=== PATIENT | female | born 1935 | race Caucasian/White ===

== ENCOUNTER 2019-12-30 14:13 | Emergency (ER) | payer MEDICARE, SELFPAY ==
--- NOTE | ~2019-12-30 | CT_ITS ---
EXAMINATION: CT abdomen pelvis w con EXAM DATE: 12/30/2019 15:30 INDICATION: Left lower quadrant pain for 3 days. TECHNIQUE: Spiral CT of the abdomen and pelvis was performed following intravenous injection of 100 m L Omnipaque 350. Axial, coronal and sagittal images were reviewed. The dose-length product (DLP) fo r this examination was 424.17 mGy-cm. The exposure was tailored according to patient size (auto mA e xposure control), and iterative reconstruction (ASIR) was used as additional dose reduction technique . Comparison is made to prior examination from 10/19/2015. FINDINGS: The liver, spleen, adrenal glands and pancreas are unremarkable. There is chronic dense ma terial in the gallbladder probably large gallstone casting the inside of the gallbladder. Portal and splenic veins are patent. Kidneys enhance symmetrically. There is no hydronephrosis. The uterus is not identified and has likely been surgically resected. The bladder is unremarkable. There is no retroperitoneal or pelvic lymphadenopathy. There is moderate scattered arteriosclerotic disease. Probable cecal resection. There is moderate descending and sigmoid colonic diverticulosis. There is m ild inflammation at the descending/sigmoid colonic junction probably mild acute uncomplicated diverti culitis. There is colonic fluid, diarrhea. The stomach and small bowel are unremarkable. No free in traperitoneal gas. The heart is normal in size. There are no pericardial or pleural effusions. Th e lung bases are unremarkable. There are no osteoblastic or osteolytic lesions identified. There is advanced thoracolumbar spondylosis. There is mild to moderate chronic appearing compression fracture of T12. IMPRESSION: 1. Findings consistent with acute uncomplicated descending colonic colitis. Diarrhea. 2. Chronic, surgical changes above. Reviewed, dictated and finalized at location A. IMPRESSION: 1. Findings consistent with acute uncomplicated descending colonic colitis. Di arrhea. 2. Chronic, surgical changes above.
[2019-12-30 14:18] VITALS: BP 186/86; PULSE 83; RESP 16; TEMP 37.2; O2SAT 100
--- NOTE | 2019-12-30 14:35 | ED.ABDPAIN ---
HPI - Abdominal Pain General Chief Complaint: Abdominal Pain Stated Complaint: LLQ ABD PAIN X3D Time Seen by Provider: 12/30/19 14:23 Source: patient Mode of arrival: ambulatory Limitations: no limitations History of Present Illness HPI narrative: Pt is an 84 y/o female who presents to the ED with c/o intermittent LLQ ABD pain. She reports associated nausea, but denies vomiting, diarrhea, or a fever. Pt did not take any pain medicine. She went to the and was sent to the ED for further evaluation. MD elicited complaint: abdominal pain Pain Consistency: intermittent Location: LLQ Associated symptoms: nausea Related Data Home Medications Medication Instructions Recorded Confirmed levothyroxine 75 mcg tablet 75 mcg PO DAILY 12/09/19 12/09/19 lisinopril 40 mg tablet 40 mg PO DAILY 12/09/19 12/09/19 Allergies Allergy/AdvReac Type Severity Reaction Status Date / Time celecoxib Allergy Unknown abdominal Verified 12/09/19 09:09 pain ciprofloxacin Allergy Unknown Unknown Verified 12/09/19 09:09 valacyclovir AdvReac Severe Headache Verified 12/30/19 14:52 Review of Systems Review of Systems: All systems reviewed & are unremarkable except as noted in HPI and below Constitutional: Constitutional: Denies fever(s) Gastrointestinal: Gastrointestinal: Reports abdominal pain, Denies diarrhea, Reports nausea and Denies vomiting PMFSH Past Medical History Medical History Arthritis Decreased hearing Depression HLD (hyperlipidemia) HTN (hypertension) Hypothyroidism Osteoporosis Seasonal allergies UTI (urinary tract infection) Surgical History Surgical History H/O repair of left rotator cuff H/O: hysterectomy History of back surgery History of colon resection Hx of appendectomy Family History Family History (System 09/02/19 @ 08:22 by Mindy Corona) Mother Hypertension Father Family history of chronic obstructive pulmonary disease Patient's father is Sibling Family history of diabetes mellitus in first degree relative Social History Social History Smoking status: Never smoker Second hand tobacco smoke exposure: No Alcohol intake: never Substance use: never Substance use type: does not use Gender identity (if verbalized by the patient): Female Exam Narrative: Exam Narrative: APPEARANCE: No acute distress, nontoxic, resting in bed HEENT: Normocephalic, atraumatic, OMM RESPIRATORY: No respiratory distress, clear to auscultation bilaterally with no rhonchi wheezing or rales CARDIOVASCULAR: RRR s murmur ABDOMINAL: Soft, nondistended, tender palpation left lower quadrant, no tenderness left upper quadrant, right quadrant right lower quadrant, no rebound or guarding MUSCULOSKELETAl: Moves all extremities. No clubbing, cyanosis or edema. NEURO: Awake and alert. Following commands, speech normal, no focal deficits SKIN:: Warm, dry. Normal Color PSYCHIATRIC: Normal affect/mood Course Course Emergency Course: Discussed with Dr. Wilson presentation work-up. Agrees with plan to start patient Augmentin with follow-up as an outpatient Patient states that they are feeling much better at this time. States abdominal pain has improved. Repeat abdominal exam shows the patient's abdomen to be soft with no surgical abdomen present discussed with patient results of workup and diagnosis. Discussed need for follow-up with primary care physician, reasons to return to the emergency department in proper use of medication. Patient understands and agrees to current treatment plan Vital Signs Vital signs: Vital Signs Temperature 98.9 F 12/30/19 14:18 Pulse Rate 83 12/30/19 14:18 Respiratory Rate 16 12/30/19 14:18 Blood Pressure 186/86 H 12/30/19 14:18 Pulse Oximetry 100 12/30/19 14:18 Temperature 98.9 F 12/30/19 14:18
--- NOTE | 2019-12-30 15:04 | PC.NURSE ---
Called phlebotomy to draw lactic acid.
[2019-12-30 15:10] LABS: Basophils Absolute Auto 0.1 K/mm3 (0.0-0.1); Basophils Percent Auto 0.7 % (0.2-1.2); Eosinophils Absolute Auto 0.1 K/mm3 (0-0.3); Eosinophils Percent Auto 1.4 % (0-4.4); Hematocrit 43.5 % (37.0-47.0); Hemoglobin 14.3 g/dL (12.0-15.0); Immature Granulocyte Absolute 0.03 K/mm3 (0.00-0.031); Immature Granulocyte Percent A 0.3 % (0-0.5); Lymphocytes Absolute Auto 2.21 K/mm3 (0.9-3.2); Lymphocytes Percent Auto 22.6 % (18.3-44.2); Mean Corpuscular HGB Conc 32.9 g/dl (32-36); Mean Corpuscular Hemoglobin 30.7 pg (26-34); Mean Corpuscular Volume 93.3 fl (80-100); Mean Platelet Volume 11.4 fl (7.4-10.4); Monocytes Percent Auto 10.6 % (2.6-8.5); Neutrophils Absolute Auto 6.3 K/mm3 (1.3-6.7); Neutrophils Percent Auto 64.4 % (45.5-73.1); Platelet Count Result 209 k/mm3 (150-375); Red Blood Count 4.66 M/mm3 (4.2-5.4); Red Cell Distribution Width 11.1 % (11.5-14.5); White Blood Count 9.8 K/mm3 (4.5-10.0)
[2019-12-30 15:23] LABS: Lipase 71 U/L (23-300)
[2019-12-30 15:25] LABS: Estimated CRCL calculation 42 ml/min; Estimated Glomerular Filt Rate > 60
[2019-12-30] MEDS: LACTATED RINGERS 1,000 ML 999 ML IV CONT (16:00)
[2019-12-30 16:13] LABS: Prothrombin Time 13.3 Seconds (11.1-14.7)
[2019-12-30 16:14] LABS: Lactic Acid Reflex 1.5 mmol/L (0.7-2.1); Partial Thromboplastin Time 28.8 SECONDS (22.3-36.8)
[2019-12-30 16:15] LABS: Alanine Aminotransferase 21 U/L (4-35); Albumin Level 3.7 g/dL (3.5-5.1); Alkaline Phosphatase 62 U/L (38-126); Aspartate Amino Transferase 32 U/L (14-36); Bilirubin,Total 0.6 mg/dL (0.2-1.3); Blood Urea Nitrogen 10 mg/dL (7-17); Carbon Dioxide 28 mmol/L (22-30); Chloride 103 mmol/L (98-107); Estimated CRCL calculation 42 ml/min; Estimated Glomerular Filt Rate > 60; Glucose 80 mg/dL (65-105); Sodium 137 mmol/L (137-145)
[2019-12-30 16:24] LABS: Add Urine Microscopic? YES; Amorphous Sediment Urine Few; Appearance Urine Cloudy (Clear); Bacteria Urine Trace /hpf; Bilirubin Urine Negative (Negative); Blood Urine 1+ (Negative); Color Urine Straw (Yellow); Glucose Urine UA Negative (Negative); Ketones Urine Negative (Negative); Leukocyte Esterase Ur 3+ LEU/UL (Negative); Nitrate Urine Negative (Negative); Protein Urine Negative (Negative); Specific Grav Ur 1.006 (1.001-1.035); Squamous Epithelial Cell Urine Moderate /hpf (Few); Urobilinogen Urine Negative mg/dL (<2.0)
[2019-12-30 18:00] VITALS: BP 135/78; PULSE 79; RESP 20; O2SAT 98
[2019-12-30] MEDS: AMOXICILLIN/CLAVULANATE K 875-125 MG TAB 1 TABLET PO (18:00)
== END 2019-12-30 18:00 | disposition home or self-care (01) ==
PROVIDERS: Emergency Provider Emergency Medicine; PCP Family Medicine
DX: K57.32 Diverticulitis of large intestine without perforation or abscess without bleeding (principal); M19.90 Unspecified osteoarthritis, unspecified site; E03.9 Hypothyroidism, unspecified; I10 Essential (primary) hypertension; E78.5 Hyperlipidemia, unspecified; M81.0 Age-related osteoporosis without current pathological fracture; Z90.49 Acquired absence of other specified parts of digestive tract; Z87.440 Personal history of urinary (tract) infections
CPT/HCPCS: 36415; 74177; 80053; 81001; 83605; 83690; 85025; 85610; 85730; 87077; 87086; 87088; 87186; 96361; 96374; 99284; A9270; J0131; J7120; Q9967

== ENCOUNTER 2020-02-11 07:37 | Outpatient (CLI) | payer MEDICARE, SELFPAY ==
--- NOTE | ~2020-02-11 | CT_ITS ---
EXAMINATION: CT abdomen pelvis w con DATE: 02/11/2020 08:37 INDICATION: Intestinal diverticulitis. TECHNIQUE: Computed tomography (CT) of the abdomen and pelvis was performed . with 100 mL Omnipaque-3 50 intravenous contrast. Automated exposure control and iterative reconstruction technique were emplo yed. The dose-length product was 403.22 mGy-cm. COMPARISON: 12/30/2019 FINDINGS: Chronic mild elevation of the left hemidiaphragm with mild left basilar atelectasis. Heart size is no rmal. No pericardial or pleural effusion. Several large calcified gallstones nearly filling the parti ally decompressed gallbladder. Common bile duct measures up to 7 mm diameter which is at the upper li mits of normal for age. No evident choledocholithiasis. Liver is normal with no intrahepatic biliary ductal dilation. Spleen, pancreas, bilateral adrenal glands and kidneys are normal. Bladder is normal . The uterus is not identified and has likely been surgically resected. There is moderate colonic div erticulosis with a sigmoid and descending colon predominance. There is no adjacent inflammatory soto ge to suggest diverticulitis. Postoperative change of cecal resection with ileocolic anastomosis in t he right lower quadrant. No bowel obstruction. No free intraperitoneal gas or fluid. No pathologicall y enlarged abdominal or pelvic lymphadenopathy. There is calcified atherosclerosis of the aorta and m any of the other arteries. Chronic T12 compression fracture with 1/4 anterior vertebral body height l oss. Severe degenerative skeletal changes in the spine and right hip. IMPRESSION: 1. Diverticulosis. 2. Cholelithiasis. Reviewed, dictated and finalized at location A.
[2020-02-11 08:19] LABS: Estimated Glomerular Filt Rate > 60
== END 2020-02-11 07:38 | disposition home or self-care (01) ==
PROVIDERS: PCP Family Medicine; Visit Provider Family Medicine
DX: K57.92 Diverticulitis of intestine, part unspecified, without perforation or abscess without bleeding (principal); K80.20 Calculus of gallbladder without cholecystitis without obstruction
CPT/HCPCS: 36415; 74177; Q9967

== ENCOUNTER 2020-07-19 07:02 | Outpatient (CLI) | payer MEDICARE, SELFPAY ==
[2020-07-19 08:14] LABS: Basophils Absolute Auto 0.1 K/mm3 (0.0-0.1); Basophils Percent Auto 1.4 % (0.2-1.2); Eosinophils Absolute Auto 0.2 K/mm3 (0-0.3); Hematocrit 45.4 % (37.0-47.0); Hemoglobin 14.8 g/dL (12.0-15.0); Immature Granulocyte Absolute 0.01 K/mm3 (0.00-0.031); Immature Granulocyte Percent A 0.2 % (0-0.5); Lymphocytes Absolute Auto 2.08 K/mm3 (0.9-3.2); Lymphocytes Percent Auto 31.3 % (18.3-44.2); Mean Corpuscular HGB Conc 32.6 g/dl (32-36); Mean Corpuscular Hemoglobin 30.4 pg (26-34); Mean Corpuscular Volume 93.2 fl (80-100); Monocytes Absolute Auto 0.7 K/mm3 (0.1-0.6); Monocytes Percent Auto 10.8 % (2.6-8.5); Neutrophils Absolute Auto 3.5 K/mm3 (1.3-6.7); Neutrophils Percent Auto 53.3 % (45.5-73.1); Platelet Count Result 219 k/mm3 (150-375); Red Blood Count 4.87 M/mm3 (4.2-5.4); Red Cell Distribution Width 11.1 % (11.5-14.5); White Blood Count 6.6 K/mm3 (4.5-10.0)
[2020-07-19 08:24] LABS: Add Urine Microscopic? YES; Appearance Urine Cloudy (Clear); Bacteria Urine Trace /hpf; Bilirubin Urine Negative (Negative); Blood Urine 2+ (Negative); Color Urine Straw (Yellow); Glucose Urine UA Negative (Negative); Ketones Urine Negative (Negative); Leukocyte Esterase Ur 2+ LEU/UL (NEGATIVE); Nitrate Urine Negative (Negative); Protein Urine Negative (Negative); Specific Grav Ur 1.008 (1.001-1.035); Squamous Epithelial Cell Urine Many /hpf (Few); Transitional Epi Cells Urine Rare /hpf (None Seen); Urobilinogen Urine Negative mg/dL (<2.0); WBC Urine 31-50 /hpf (0-3)
[2020-07-19 08:30] LABS: Alanine Aminotransferase 22 U/L (4-35); Albumin Level 4.1 g/dL (3.5-5.1); Alkaline Phosphatase 68 U/L (38-126); Anion Gap 8 mmol/L (8-16); Aspartate Amino Transferase 36 U/L (14-36); Bilirubin,Total 0.7 mg/dL (0.2-1.3); Blood Urea Nitrogen 13 mg/dL (7-17); Carbon Dioxide 31 mmol/L (22-30); Chloride 101 mmol/L (98-107); Cholesterol 246 mg/dL (0-200); Estimated Glomerular Filt Rate 60; Glucose 104 mg/dL (65-105); HDL Direct 54 mg/dL; Potassium 3.9 mmol/L (3.4-5.0); Sodium 140 mmol/L (137-145); Triglycerides 221 mg/dL (<150)
[2020-07-19 08:40] LABS: LDL Cholesterol Direct 137 mg/dL
== END 2020-07-19 07:03 | disposition home or self-care (01) ==
LOC: ANHLAB 07:05 → ANHVASCINF 07:09
PROVIDERS: PCP Family Medicine; Visit Provider Physician Assistant
DX: N39.0 Urinary tract infection, site not specified (principal); E78.5 Hyperlipidemia, unspecified; I10 Essential (primary) hypertension; E03.9 Hypothyroidism, unspecified; M81.0 Age-related osteoporosis without current pathological fracture
CPT/HCPCS: 36415; 80053; 80061; 81001; 84443; 85025; 87077; 87086; 87088; 87186; 99212; G0463

== ENCOUNTER 2020-10-16 17:24 | Inpatient (IN) | payer MEDICARE, SELFPAY ==
[2020-10-16] VITALS (7 sets, daily range): BP systolic 140–150; BP diastolic 68–92; PULSE 97–111; RESP 18–20; TEMP 36.6–37.2; O2SAT 95–99; BMI 25.0
--- NOTE | ~2020-10-16 | CT_ITS ---
EXAMINATION: CT lumbar spine wo con DATE: 10/16/2020 17:54 INDICATION: Low back pain TECHNIQUE: Computed tomography (CT) of the lumbar spine was performed without intravenous contrast. T he dose-length product was 499.61 mGy-cm. Automated exposure control and iterative reconstruction luis hnique were employed. COMPARISON: Lumbar spine series dated 12/30/2009 FINDINGS: There is mild wedge compression deformity of T12 which is new since prior x-rays, although is likely chronic. There is disc narrowing and endplate degenerative change at all lumbar levels. The re are prominent dorsal osteophytes at T11-12. There is atherosclerosis of the aorta. There is advanc ed facet hypertrophy with endplate degenerative change at L4-5 and L5-S1. There are laminectomy rossi es at L4 and L5. No acute fracture or traumatic malalignment. IMPRESSION: 1. No acute abnormality of the lumbar spine. 2: Mild wedge compression deformity of T12, likely chronic. 3: Severe lumbar spondylosis. Reviewed, dictated and finalized at location A. R [employer] P[employer]ER
--- NOTE | ~2020-10-16 | CT_ITS ---
EXAMINATION: CT abdomen pelvis w con DATE: 10/16/2020 20:17 INDICATION: Pyelonephritis TECHNIQUE: Computed tomography (CT) of the abdomen and pelvis was performed with 100 cc Omnipaque 350 intravenous contrast. The dose-length product was 702.64 mGy-cm. Automated exposure control and iter ative reconstruction technique were employed. COMPARISON: CT dated 02/11/2020. FINDINGS: Dependent atelectasis. Heart size normal. Moderate atherosclerosis. Status post appendectom y. Nonobstructive bowel gas pattern. Status post hysterectomy. Colonic diverticulosis without evidenc e for diverticulitis. There is a nodular appearance to the liver surface, suspicious for cirrhosis. There are gallstones. T he spleen, pancreas, adrenal glands are unremarkable. There is a poorly circumscribed area of hypoper fusion in the lower pole of the left kidney with mild surrounding inflammation, consistent with pyelo nephritis. There are small subcentimeter hypodensities of both kidneys, most likely benign. No significant hydronephrosis. 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 Severe lower thoracic an d lumbar spondylosis. IMPRESSION: 1. Poorly circumscribed area of hypoperfusion lower pole of the left kidney, consistent with pyelonep hritis. 2: Cholelithiasis. 3: Nodular liver surface, suspicious for cirrhosis. Reviewed, dictated and finalized at location A. [employer]IST IMPRESSION: 1. Poorly circumscribed area of hypoperfusion lower pole of the left kidney, co nsistent with pyelonephritis. 2: Cholelithiasis. 3: Nodular liver surface, suspicious for cirrhosis.
--- NOTE | 2020-10-16 17:36 | ED.GENADULT ---
HPI - General Adult General Chief complaint: Weakness Stated complaint: weakness Time Seen by Provider: 10/16/20 17:33 History of Present Illness HPI narrative: 85 yo female w/ h/o htn, hypothyroidism presents to the ED for weakness. She reports that she has had several days of progressive weakness. Today she attempted to standup from a chair and slid to the ground. She does not believe that she injured herself in the fall. She thinks the weakness may be due to worsening of her chronic back pain. She has had multiple minor falls recently. She does report urinary frequency as well. No dysuria, hematuria, fever, head injury, focal weakness. Related Data Home Medications Medication Instructions Recorded Confirmed naproxen sodium 1 tablet PO PRN 10/16/20 10/16/20 Allergies Allergy/AdvReac Type Severity Reaction Status Date / Time celecoxib Allergy Unknown abdominal Verified 10/16/20 22:17 pain ciprofloxacin Allergy Unknown Unknown Verified 10/16/20 22:17 valacyclovir AdvReac Severe Headache Verified 10/16/20 22:17 Review of Systems Review of Systems: All systems reviewed & are unremarkable except as noted in HPI and below Constitutional: Constitutional: Denies chills and Denies fever(s) Cardiovascular: Cardiovascular: Denies chest pain Respiratory: Respiratory: Denies dyspnea Gastrointestinal: Gastrointestinal: Denies abdominal pain, Denies nausea and Denies vomiting Genitourinary: Genitourinary: Denies hematuria, Reports nocturia and Denies dysuria Musculoskeletal: Musculoskeletal: Reports back pain Neurologic: Denies confusion, Denies dizziness, Denies syncope, Denies focal weakness and Reports weakness PMFSH Past Medical History Medical History Arthritis Decreased hearing Depression HLD (hyperlipidemia) HTN (hypertension) Hypothyroidism Osteoporosis Seasonal allergies UTI (urinary tract infection) UTI (urinary tract infection) Vitiligo Surgical History Surgical History H/O repair of left rotator cuff H/O: hysterectomy History of back surgery History of colon resection Hx of appendectomy Family History Family History Mother Hypertension Breast cancer Father Patient's father is Family history of chronic obstructive pulmonary disease Emphysema Sibling Family history of diabetes mellitus in first degree relative Social History Social History Social History: Independent, active, daughters nearby that helps with groceries and bills Smoking status: Never smoker Second hand tobacco smoke exposure: No Alcohol intake: never Substance use: never Substance use type: does not use Additional living arrangements comments: Lives with Gender identity (if verbalized by the patient): Female Spiritual care concerns: No Exam Const: General: healthy appearing, no acute distress and alert Orientation/consciousness: patient oriented x3 HENMT: Head: normal to inspection Neck: Neck: normal visual inspection and no lymphadenopathy Chest: Chest palpation & inspection: no tenderness Resp: Effort & Inspection: normal respiratory effort Auscultation: clear to auscultation bilaterally, no rales, no rhonchi and no wheezes Cardio: Jugular venous distension: no JVD Rate: regular rate Rhythm: regular rhythm Heart sounds: no murmurs GI: Inspection: non-distended GI Palp: Yes Soft to palpation and No Tenderness to palpation present (GI) Back/Spine/Pelvis: Back: no CVA tenderness Skin: General skin exam: normal color Neuro: General: patient oriented x3 and moves all extremities Speech: normal speech Extrem: General: no edema Psych: Appearance: well kempt Affect: normal affect Course Vital Signs Vital
[2020-10-16 17:46] LABS: Hematocrit 40.8 % (37.0-47.0); Hemoglobin 13.8 g/dL (12.0-15.0); Mean Corpuscular HGB Conc 33.8 g/dl (32-36); Mean Corpuscular Hemoglobin 31.3 pg (26-34); Mean Corpuscular Volume 92.5 fl (80-100); Platelet Count Result 324 k/mm3 (150-375); Red Blood Count 4.41 M/mm3 (4.2-5.4); Red Cell Distribution Width 11.1 % (11.5-14.5)
[2020-10-16 17:47] LABS: Basophils Absolute Auto 0.1 K/mm3 (0.0-0.1); Basophils Percent Auto 0.4 % (0.2-1.2); Immature Granulocyte Absolute 0.33 K/mm3 (0.00-0.031); Immature Granulocyte Percent A 1.5 % (0-0.5); Lymphocytes Absolute Auto 1.12 K/mm3 (0.9-3.2); Lymphocytes Percent Auto 5.1 % (18.3-44.2); Mean Platelet Volume 10.5 fl (7.4-10.4); Monocytes Absolute Auto 2.3 K/mm3 (0.1-0.6); Monocytes Percent Auto 10.2 % (2.6-8.5); Neutrophils Absolute Auto 18.2 K/mm3 (1.3-6.7); Neutrophils Percent Auto 82.8 % (45.5-73.1)
--- NOTE | 2020-10-16 17:54 | PC.NURSE ---
Patient refusing to be straight cath at this time, states will notified nurse when have to void.
[2020-10-16] MEDS: SODIUM CHLORIDE 0.9% IV 500 ML 999 ML IV CONT (18:06)
[2020-10-16 18:30] LABS: Alanine Aminotransferase 15 U/L (4-35); Albumin Level 3.4 g/dL (3.5-5.1); Alkaline Phosphatase 83 U/L (38-126); Anion Gap 5 mmol/L (8-16); Aspartate Amino Transferase 25 U/L (14-36); Blood Urea Nitrogen 9 mg/dL (7-17); Calcium 8.6 mg/dL (8.4-10.2); Carbon Dioxide 31 mmol/L (22-30); Chloride 97 mmol/L (98-107); Estimated CRCL calculation 42 ml/min; Estimated Glomerular Filt Rate > 60; Glucose 142 mg/dL (65-105); Potassium 3.9 mmol/L (3.4-5.0); Sodium 133 mmol/L (137-145)
[2020-10-16 19:00] LABS: Add Urine Microscopic? YES; Appearance Urine Cloudy (Clear); Bacteria Urine Trace /hpf; Bilirubin Urine Negative (Negative); Blood Urine Negative (Negative); Color Urine Yellow (Yellow); Glucose Urine UA Negative (Negative); Ketones Urine Trace mg/dL (Negative); Leukocyte Esterase Ur 1+ LEU/UL (Negative); Mucus Urine Rare /lpf; Nitrate Urine Positive (Negative); Protein Urine 1+ mg/dL (Negative); Specific Grav Ur 1.011 (1.001-1.035); Squamous Epithelial Cell Urine Many /hpf (Few); Urobilinogen Urine Negative mg/dL (<2.0); WBC Urine >75 /hpf
--- NOTE | 2020-10-16 19:39 | PM.IMHP ---
H&P: HPI History of Present Illness Date/Time: 10/16/20 19:39 Chief Complaint: abdominal pain, generalized weakness, urinary urgency/frequency Narrative: Brenna Perry is a 85 year old female hypertension, hyperlipidemia, hypothyroidism, osteoporosis, history of UTI presents to ED with complaints of low back pain and generalized weakness. She states her symptoms started couple weeks ago which gradually progressed. She got to the point where she got very weak and was having a hard time getting up. Her was concerned and they called EMS. She endorses generalized weakness which has been progressive, denies syncope, lightheadedness, dizziness, or loss of consciousness. She does complain of urinary urgency without dysuria or hematuria. Patient has had UTIs in the past but does not know what antibiotics she has been on in the past. Last PCP wellness visit was 07/08/2020 and lab work looked good and she had no acute problems. In the ED: Patient is tachycardic and WBC count 22,000 triggering sepsis with UA consistent with UTI. Patient's CT of lumbar spine because of back pain which showed chronic compression T12 in severe lumbar spondylolysis and no acute abnormality. Patient was started on Rocephin for UTI. CT abdomen pelvis consistent with left-sided pyelonephritis which is consistent with her symptoms. Vitals stabilized with LR fluid bolus. Since patient triggered sepsis without end-organ damage and has pyelonephritis requiring IV antibiotics, patient will be admitted for IV antibiotics. Anticipate greater than 2 days for IV antibiotics. Date of service 10/16/2020. Review of Systems Review of Systems: Narrative: Constitutional: No Fever, No Chills, No Night Sweats, endorses fatigue and generalized weakness. ENT/Mouth: No Hearing Changes, No Ear Pain, No Nasal Congestion, No Sinus Pain, No Hoarseness, No sore throat, No Rhinorrhea, No Swallowing Difficulty Eyes: No Eye Pain, No Redness, No Vision Changes Cardiovascular: No Chest Pain, No Palpitations, No Dyspnea on Exertion, No Orthopnea, No Claudication, No Edema Respiratory: No Cough, No Sputum, No Wheezing, No Shortness of Breath Gastrointestinal: No Vomiting, No Diarrhea, No Constipation, No Heartburn, No Hematochezia, No Melena. Endorses nausea and left-sided abdominal pain. Genitourinary: No Dysuria, No Hematuria. Endorses urinary urgency and frequency. Musculoskeletal: No Arthralgias, No Myalgias, No Joint Swelling, No Joint Stiffness. Endorses left-sided low back pain. Skin: No Skin Lesions, No Pruritis, No Hair Changes Neuro: No focal weakness, No Numbness, No Paresthesias, No Loss of Consciousness, No Syncope, No Dizziness, No Headache Psych: No Anxiety/Panic, No Depression, No Insomnia Heme: No Bruising, No Bleeding Lymph: No Adenopathy Endocrine: No Polyuria, No Polydipsia, No Temperature Intolerance [facility] Past Medical History Medical History Arthritis Decreased hearing Depression HLD (hyperlipidemia) HTN (hypertension) Hypothyroidism Osteoporosis Seasonal allergies UTI (urinary tract infection) UTI (urinary tract infection) Vitiligo Surgical History Surgical History H/O repair of left rotator cuff H/O: hysterectomy History of back surgery History of colon resection Hx of appendectomy Family History Family History Mother Hypertension Breast cancer Father Patient's father is Family history of chronic obstructive pulmonary disease Emphysema Sibling Family history of diabetes mellitus in first degree relative Social History Social History (Updated 10/16/20 @ 21:05 by Evonne Angelo DO) Social History: Independent, active, daughters nearby that helps with groceries and bills Smoking status: Never smoker Second hand
[2020-10-16] MEDS: LACTATED RINGERS 1,000 ML 75 ML IV CONT (21:47)
[2020-10-17] MEDS: ONDANSETRON INJ 4 MG/2 ML VIAL IV PUSH (05:05)
[2020-10-17 06:00] VITALS: BP 139/68; PULSE 95; RESP 16; TEMP 37.2; O2SAT 94
[2020-10-17] MEDS: LEVOTHYROXINE SODIUM 75 MCG TABLET PO (06:54)
[2020-10-17 07:21] LABS: Basophils Absolute Auto 0.1 K/mm3 (0.0-0.1); Basophils Percent Auto 0.5 % (0.2-1.2); Eosinophils Percent Auto 0.1 % (0-4.4); Hematocrit 39.3 % (37.0-47.0); Hemoglobin 12.6 g/dL (12.0-15.0); Immature Granulocyte Absolute 0.16 K/mm3 (0.00-0.031); Immature Granulocyte Percent A 0.8 % (0-0.5); Immature Platelet Fraction Pct 4.4 % (0.9-11.2); Lymphocytes Absolute Auto 1.81 K/mm3 (0.9-3.2); Lymphocytes Percent Auto 9.3 % (18.3-44.2); Mean Corpuscular HGB Conc 32.1 g/dl (32-36); Mean Corpuscular Hemoglobin 30.5 pg (26-34); Mean Corpuscular Volume 95.2 fl (80-100); Mean Platelet Volume 10.5 fl (7.4-10.4); Monocytes Percent Auto 10.1 % (2.6-8.5); Neutrophils Absolute Auto 15.5 K/mm3 (1.3-6.7); Neutrophils Percent Auto 79.2 % (45.5-73.1); Platelet Count Result 261 k/mm3 (150-375); Red Blood Count 4.13 M/mm3 (4.2-5.4); Red Cell Distribution Width 11.1 % (11.5-14.5); White Blood Count 19.6 K/mm3 (4.5-10.0)
[2020-10-17 07:23] LABS: Anion Gap 4 mmol/L (8-16); Blood Urea Nitrogen 9 mg/dL (7-17); Calcium 8.3 mg/dL (8.4-10.2); Carbon Dioxide 29 mmol/L (22-30); Chloride 102 mmol/L (98-107); Estimated CRCL calculation 42 ml/min; Estimated Glomerular Filt Rate > 60; Glucose 121 mg/dL (65-105); Sodium 135 mmol/L (137-145)
[2020-10-17] MEDS: lisinopriL 20 MG TABLET 40 MG PO (08:35)
[2020-10-17] MEDS: ENOXAPARIN 40 MG/0.4 ML SYRINGE SUB-Q (08:35)
[2020-10-17] MEDS: LACTATED RINGERS 1,000 ML 75 ML IV CONT (12:01)
[2020-10-17 14:00] VITALS: BP 135/63; PULSE 90; RESP 16; TEMP 37.1; O2SAT 96
--- NOTE | 2020-10-17 14:15 | PM.IMPN ---
Progress Note: A&P Assessment and Plan (1) Acute pyelonephritis: Code(s): N10 - Acute pyelonephritis Status: Acute Assessment and Plan: Symptoms and imaging consistent with pyelonephritis -UA consistent with infection -continue ceftriaxone and await blood cultures -continue IV fluids but monitor for fluid overload -continue zofran for nausea -white blood cell count minimally improved today 19.6 -await urine cultures and adjust medications as necessary (2) Sepsis: Qualifiers: Sepsis type: sepsis due to unspecified organism Sepsis acute organ dysfunction status: without acute organ dysfunction Qualified Code(s): A41.9 - Sepsis, unspecified organism Code(s): A41.9 - Sepsis, unspecified organism Status: Acute Assessment and Plan: Sepsis criteria met with tachycardia and leukocytosis, source infection urinary. -continue ceftriaxone as stated above -await blood cultures (3) HTN (hypertension): Code(s): I10 - Essential (primary) hypertension Status: Acute Assessment and Plan: Last blood pressure 139/68 -continue lisinopril (4) Hypothyroidism: Code(s): E03.9 - Hypothyroidism, unspecified Status: Acute Assessment and Plan: Continue home levothyroxine (5) Generalized weakness: Code(s): R53.1 - Weakness Status: Acute Assessment and Plan: Likely due to above -PT and OT have been ordered Time Spent With Patient Time with patient: 25 - 35 minutes Subjective Date/time seen: 10/17/20 14:15 Interval history: Pt is a 85-year-old female here for pyelonephritis. Patient was seen today and states she is feeling better than when she was admitted overnight. She is still having left flank pain but is improving. She feels stronger than she did yesterday. She has been up and walking to the bathroom with assistance. She has been having some nausea and has not been eating very much. She denies chest pain, shortness of breath, abdominal pain, leg swelling, fevers but she has been having chills. Review of Systems Review of Systems: All systems reviewed & are unremarkable except as noted in HPI and below Exam Narrative: Exam Narrative: General: Well developed well nourished patient in NAD HEENT: normocephalic Neck: supple Neuro: Alert and oriented x4 CV:RRR Resp:CTA Abd: Soft, non distended. No pain to palpation. Positive bowel sounds Back: CVA tenderness Extremities: No swelling, erythema, or pain to palpation. Objective Data Vital Signs Vital Signs: Vital Signs - 24 hr 10/16/20 17:25 10/16/20 17:38 10/16/20 18:12 Temperature 97.8 F Pulse Rate 108 H 111 H 101 H Respiratory Rate 20 18 Blood Pressure 149/92 H 142/76 H Pulse Oximetry 97 98 10/16/20 19:32 10/16/20 19:45 10/16/20 21:32 Temperature 98.9 F Pulse Rate 97 99 Respiratory Rate 18 20 Blood Pressure 140/68 144/87 H Pulse Oximetry 95 99 10/16/20 21:45 10/17/20 06:00 Temperature 98.2 F 98.9 F Pulse Rate 101 H 95 Respiratory Rate 18 16 Blood Pressure 150/82 H 139/68 Pulse Oximetry 98 94 Intake/Output Intake/Output: Intake & Output 10/14/20 10/15/20 10/16/20 10/17/20 23:59 23:59 23:59 23:59 Intake Total 500 1370 Output Total 900 Balance 500 470 Meds/Results Medications: Active Medications Generic Name Dose Route Start Last Admin Trade Name Freq PRN Reason Stop Dose Admin Enoxaparin Sodium 40 mg 10/17/20 09:00 10/17/20 08:35 Enoxaparin 40 Mg/0.4 Ml Syringe SUB-Q 40 mg DAILY APOLONIA Administration Lactated Ringer's 1,000 mls @ 75 mls/hr 10/16/20 20:30 10/17/20 12:01 Lr - Lactated Ringers Iv IV CONT 75 mls/hr .[id number] APOLONIA Administration Ceftriaxone Sodium/Dextrose 1 gm in 50 mls @ 100 mls/hr 10/17/20 21:00 Rocephin 1 Gm/D5w 50 Ml IVPB HS APOLONIA Levothyroxine Sodium 75 mcg 10/17/20 06:30 10/17/20 06:54 Levothyroxine Sodium 75 Mcg Tablet PO
[2020-10-17 20:00] VITALS: PULSE 92; RESP 16; O2SAT 96
[2020-10-17] MEDS: MELATONIN 3 MG TABLET PO (21:04)
[2020-10-17 22:00] VITALS: BP 129/43; PULSE 92; RESP 16; TEMP 37; O2SAT 96
[2020-10-18] MEDS: LACTATED RINGERS 1,000 ML 75 ML IV CONT (02:33)
[2020-10-18 06:00] VITALS: BP 135/60; PULSE 84; RESP 16; TEMP 36.4; O2SAT 97
[2020-10-18] MEDS: LEVOTHYROXINE SODIUM 75 MCG TABLET PO (06:07)
[2020-10-18 06:31] LABS: Basophils Absolute Auto 0.1 K/mm3 (0.0-0.1); Basophils Percent Auto 0.3 % (0.2-1.2); Eosinophils Absolute Auto 0.1 K/mm3 (0-0.3); Eosinophils Percent Auto 0.8 % (0-4.4); Hematocrit 39.5 % (37.0-47.0); Hemoglobin 12.8 g/dL (12.0-15.0); Immature Granulocyte Absolute 0.11 K/mm3 (0.00-0.031); Immature Granulocyte Percent A 0.8 % (0-0.5); Lymphocytes Absolute Auto 1.76 K/mm3 (0.9-3.2); Lymphocytes Percent Auto 12.3 % (18.3-44.2); Mean Corpuscular HGB Conc 32.4 g/dl (32-36); Mean Corpuscular Hemoglobin 30.7 pg (26-34); Mean Corpuscular Volume 94.7 fl (80-100); Mean Platelet Volume 10.3 fl (7.4-10.4); Monocytes Absolute Auto 1.4 K/mm3 (0.1-0.6); Monocytes Percent Auto 9.5 % (2.6-8.5); Neutrophils Absolute Auto 10.9 K/mm3 (1.3-6.7); Neutrophils Percent Auto 76.3 % (45.5-73.1); Platelet Count Result 261 k/mm3 (150-375); Red Blood Count 4.17 M/mm3 (4.2-5.4); Red Cell Distribution Width 11.3 % (11.5-14.5); White Blood Count 14.3 K/mm3 (4.5-10.0)
[2020-10-18 06:45] LABS: Anion Gap 3 mmol/L (8-16); Blood Urea Nitrogen 12 mg/dL (7-17); Calcium 8.1 mg/dL (8.4-10.2); Carbon Dioxide 32 mmol/L (22-30); Chloride 100 mmol/L (98-107); Estimated CRCL calculation 37 ml/min; Estimated Glomerular Filt Rate 60; Glucose 98 mg/dL (65-105); Potassium 4.2 mmol/L (3.4-5.0); Sodium 135 mmol/L (137-145)
[2020-10-18] MEDS: lisinopriL 20 MG TABLET 40 MG PO (08:42)
[2020-10-18] MEDS: ENOXAPARIN 40 MG/0.4 ML SYRINGE SUB-Q (08:44)
--- NOTE | 2020-10-18 12:05 | PM.IMPN ---
Progress Note: A&P Assessment and Plan (1) Acute pyelonephritis: Code(s): N10 - Acute pyelonephritis Status: Acute Assessment and Plan: Symptoms and imaging consistent with pyelonephritis -UA growing ecoli. Await sensitivities and adjust abx as needed -Blood cx neg so far -Stop IV fluids -continue zofran for nausea -white blood cell count improved today 14.3 -would recommend 3 days of IV abx since pt was septic on admission. -Possible d/c to home in 1-2 days on oral abx (2) Sepsis: Qualifiers: Sepsis type: sepsis due to unspecified organism Sepsis acute organ dysfunction status: without acute organ dysfunction Qualified Code(s): A41.9 - Sepsis, unspecified organism Code(s): A41.9 - Sepsis, unspecified organism Status: Acute Assessment and Plan: Sepsis criteria met with tachycardia and leukocytosis, source infection urinary. -continue ceftriaxone as stated above -blood cultures neg so far (3) HTN (hypertension): Code(s): I10 - Essential (primary) hypertension Status: Acute Assessment and Plan: Last blood pressure 135/60 -continue lisinopril -Fluids stopped (4) Hypothyroidism: Code(s): E03.9 - Hypothyroidism, unspecified Status: Acute Assessment and Plan: Continue home levothyroxine (5) Generalized weakness: Code(s): R53.1 - Weakness Status: Acute Assessment and Plan: Likely due to above -Continue PT and OT Additional Plan -osteoporosis: held raloxifene, patient is to have DEXA scan next year Subjective Date/time seen: 10/18/20 12:05 Interval history: Pt is a 85-year-old female here for pyelonephritis. Patient was seen today and states she is feeling better but still mildly weak. She worked with PT today and did well. Her left flank pain but is improving. She has been up and walking to the bathroom with assistance and had a BM today.Her nausea is better and her appetite is better. She denies chest pain, shortness of breath, abdominal pain, leg swelling, fevers but she has been having chills. Exam Narrative: Exam Narrative: General: Well developed well nourished patient in NAD HEENT: normocephalic Neck: supple Neuro: Alert and oriented x4 CV:RRR Resp:CTA Abd: Soft, non distended. No pain to palpation. Positive bowel sounds Back: CVA tenderness Extremities: No swelling, erythema, or pain to palpation. Objective Data Vital Signs Vital Signs: Vital Signs - 24 hr 10/17/20 14:00 10/17/20 20:00 10/17/20 22:00 Temperature 98.8 F 98.6 F Pulse Rate 90 92 92 Respiratory Rate 16 16 16 Blood Pressure 135/63 129/43 L Pulse Oximetry 96 96 96 10/18/20 06:00 Temperature 97.5 F L Pulse Rate 84 Respiratory Rate 16 Blood Pressure 135/60 Pulse Oximetry 97 Intake/Output Intake/Output: Intake & Output 10/15/20 10/16/20 10/17/20 10/18/20 23:59 23:59 23:59 23:59 Intake Total 500 2010 1740 Output Total 1350 850 Balance 500 660 890 Meds/Results Medications: Active Medications Generic Name Dose Route Start Last Admin Trade Name Freq PRN Reason Stop Dose Admin Enoxaparin Sodium 40 mg 10/17/20 09:00 10/18/20 08:44 Enoxaparin 40 Mg/0.4 Ml Syringe SUB-Q 40 mg DAILY APOLONIA Administration Ceftriaxone Sodium/Dextrose 1 gm in 50 mls @ 100 mls/hr 10/17/20 21:00 10/17/20 21:30 Rocephin 1 Gm/D5w 50 Ml IVPB Infused HS APOLONIA Infusion Levothyroxine Sodium 75 mcg 10/17/20 06:30 10/18/20 06:07 Levothyroxine Sodium 75 Mcg Tablet PO 75 mcg DAILY@0630 APOLONIA Administration Lisinopril 40 mg 10/17/20 09:00 10/18/20 08:42 Lisinopril 20 Mg Tablet PO 40 mg DAILY APOLONIA Administration Melatonin 3 mg 10/17/20 21:00 10/17/20 21:04 Melatonin 3 Mg Tablet PO 3 mg HS APOLONIA Administration Ondansetron HCl 4 mg 10/16/20 20:26 10/17/20 05:05 Ondansetron Inj 4 Mg/2 Ml Vial IV PUSH 4 mg Q4H PRN Administration Naus
[2020-10-18 14:00] VITALS: BP 111/52; PULSE 89; RESP 16; TEMP 36.9; O2SAT 97
[2020-10-18] MEDS: MELATONIN 3 MG TABLET PO (21:06)
[2020-10-18 21:40] VITALS: BP 140/71; PULSE 98; RESP 16; TEMP 37.1; O2SAT 98
[2020-10-19] MEDS: LEVOTHYROXINE SODIUM 75 MCG TABLET PO (05:20)
[2020-10-19 05:36] VITALS: BP 144/71; PULSE 88; RESP 16; TEMP 36.3; O2SAT 96
[2020-10-19 06:06] LABS: Basophils Percent Auto 0.4 % (0.2-1.2); Eosinophils Absolute Auto 0.2 K/mm3 (0-0.3); Eosinophils Percent Auto 1.6 % (0-4.4); Hematocrit 39.7 % (37.0-47.0); Hemoglobin 12.9 g/dL (12.0-15.0); Immature Granulocyte Absolute 0.08 K/mm3 (0.00-0.031); Immature Granulocyte Percent A 0.7 % (0-0.5); Lymphocytes Absolute Auto 1.58 K/mm3 (0.9-3.2); Lymphocytes Percent Auto 14.5 % (18.3-44.2); Mean Corpuscular HGB Conc 32.5 g/dl (32-36); Mean Corpuscular Hemoglobin 30.9 pg (26-34); Mean Platelet Volume 10.2 fl (7.4-10.4); Monocytes Absolute Auto 1.1 K/mm3 (0.1-0.6); Monocytes Percent Auto 9.8 % (2.6-8.5); Neutrophils Absolute Auto 7.9 K/mm3 (1.3-6.7); Platelet Count Result 265 k/mm3 (150-375); Red Blood Count 4.18 M/mm3 (4.2-5.4); Red Cell Distribution Width 11.2 % (11.5-14.5); White Blood Count 10.9 K/mm3 (4.5-10.0)
[2020-10-19 06:41] LABS: Anion Gap 1 mmol/L (8-16); Blood Urea Nitrogen 11 mg/dL (7-17); Calcium 7.9 mg/dL (8.4-10.2); Carbon Dioxide 33 mmol/L (22-30); Chloride 100 mmol/L (98-107); Estimated CRCL calculation 42 ml/min; Estimated Glomerular Filt Rate > 60; Glucose 92 mg/dL (65-105); Potassium 3.8 mmol/L (3.4-5.0); Sodium 134 mmol/L (137-145)
[2020-10-19] MEDS: ENOXAPARIN 40 MG/0.4 ML SYRINGE SUB-Q (08:55)
[2020-10-19] MEDS: lisinopriL 20 MG TABLET 40 MG PO (08:55)
[2020-10-19 09:37] VITALS: PULSE 90; RESP 18; O2SAT 96
--- NOTE | 2020-10-19 12:13 | PM.DS ---
DS: Admitting Diagnosis Admitting Diagnosis Admitting Diagnosis: Pyelonephritis, sepsis DS: Discharge Diagnosis Discharge Diagnosis (1) Acute pyelonephritis: Code(s): N10 - Acute pyelonephritis Status: Acute Assessment and Plan: Date of Admission 10/16/20 Date of Discharge 10/19/20 Ms. Perry is an 85yo F with history of hypertension and hypothyroidism who presented to the ED for evaluation of low back pain and generalized weakness, worsening over the last couple weeks. She was found to be tachycardic with leukocytosis with abnormal UA consistent with UTI and sepsis. Urine culture grew pansensitive E coli. She was received 3 days of IV rocephin and was discharged with oral Augmentin to complete the course based on sensitivity report and allergies. Patient's CT of lumbar spine because of back pain which showed chronic compression T12 in severe lumbar spondylolysis and no acute findings. She worked with PT/OT, initially declined home health due to not wanting people inside her home however it appears this was either arranged by care coordination prior to discharge or arranged by PCP. She was feeling improved after 3 days of IV antibiotics, leukocytosis improving and she was hemodynamically stable for discharge on 10/19/20 with instructions to follow up with PCP in 1 week. Blood cultures are no growth to date and will be followed to final. (2) Sepsis: Qualifiers: Sepsis type: sepsis due to unspecified organism Sepsis acute organ dysfunction status: without acute organ dysfunction Qualified Code(s): A41.9 - Sepsis, unspecified organism Code(s): A41.9 - Sepsis, unspecified organism Status: Acute Assessment and Plan: Sepsis criteria met with tachycardia and leukocytosis, source infection urinary. Improving (3) HTN (hypertension): Code(s): I10 - Essential (primary) hypertension Status: Acute Assessment and Plan: BP stable on home lisinopril. (4) Hypothyroidism: Code(s): E03.9 - Hypothyroidism, unspecified Status: Acute Assessment and Plan: Continue home levothyroxine (5) Generalized weakness: Code(s): R53.1 - Weakness Status: Acute Assessment and Plan: Suspect acute illness is contributing. PT/OT. DS: Summary Hospital Course Hospital Course: See above. Time Spent with Patient Time attestation: Total time spent providing and/or coordinating discharge services: 40 minutes Exam Narrative: Exam Narrative: General: Well developed well nourished patient in NAD HEENT: normocephalic Neck: supple Neuro: Alert and oriented x4 CV:RRR Resp:CTA Abd: Soft, non distended. No pain to palpation. Positive bowel sounds Back: CVA tenderness Extremities: No swelling, erythema, or pain to palpation. DS: Data Data Completed and Pending Labs on day of discharge: Last Vital Signs Temp 98.0 F 10/19/20 14:00 Pulse 94 10/19/20 14:00 Resp 18 10/19/20 14:00 BP 134/69 10/19/20 14:00 Pulse Ox 98 10/19/20 14:00 ITS Impressions Lumbar Spine CT 10/16/20 17:56 IMPRESSION: 1. No acute abnormality of the lumbar spine. 2: Mild wedge compression deformity of T12, likely chronic. 3: Severe lumbar spondylosis. Abdomen/Pelvis CT 10/16/20 20:19 IMPRESSION: 1. Poorly circumscribed area of hypoperfusion lower pole of the left kidney, consistent with pyelonephritis. 2: Cholelithiasis. 3: Nodular liver surface, suspicious for cirrhosis. Laboratory Tests 10/19/20 05:48 10/19/20 05:48 Discharge Plan Discharge Attending physician on discharge: Avtar Tamez Discharging Clinician: Nicole Taylor Anticipated Discharge Date/Time: 10/19/20 11:46 Patient Disposition: Home, [place]
[2020-10-19 14:00] VITALS: BP 134/69; PULSE 94; RESP 18; TEMP 36.7; O2SAT 98
== END 2020-10-19 13:55 | disposition home or self-care (01) | DRG 690 ==
LOC: ANHED 20:32 → ANH3MEDSUR 10-17 07:13
PROVIDERS: Physician Assistant; Admitting Provider Student in an Organized Health Care Education/Training Program; Emergency Provider Emergency Medicine; PCP Family Medicine; Visit Provider Physician Assistant
DX: N10 Acute pyelonephritis (principal); B96.20 Unspecified Escherichia coli [E. coli] as the cause of diseases classified elsewhere; I10 Essential (primary) hypertension; E03.9 Hypothyroidism, unspecified; M81.0 Age-related osteoporosis without current pathological fracture; E78.5 Hyperlipidemia, unspecified; R53.1 Weakness; M47.816 Spondylosis without myelopathy or radiculopathy, lumbar region; Z79.899 Other long term (current) drug therapy
CPT/HCPCS: 36415; 72131; 74177; 80048; 80053; 81001; 83735; 85025; 85055; 87040; 87077; 87086; 87088; 87186; 96361; 96365; 97110; 97116; 97161; 97165; 97530; 97535; 99285; A9270; J0696; J1650; J2405; J7040; J7120; Q9967

== ENCOUNTER 2020-10-27 08:31 | Outpatient (CLI) | payer MEDICARE, SELFPAY ==
[2020-10-27 09:05] LABS: Basophils Absolute Auto 0.1 K/mm3 (0.0-0.1); Eosinophils Absolute Auto 0.2 K/mm3 (0-0.3); Eosinophils Percent Auto 3.2 % (0-4.4); Hematocrit 41.9 % (37.0-47.0); Hemoglobin 13.4 g/dL (12.0-15.0); Immature Granulocyte Absolute 0.02 K/mm3 (0.00-0.031); Immature Granulocyte Percent A 0.3 % (0-0.5); Lymphocytes Absolute Auto 1.74 K/mm3 (0.9-3.2); Lymphocytes Percent Auto 28.9 % (18.3-44.2); Mean Corpuscular Hemoglobin 30.7 pg (26-34); Mean Corpuscular Volume 96.1 fl (80-100); Mean Platelet Volume 10.2 fl (7.4-10.4); Monocytes Absolute Auto 0.6 K/mm3 (0.1-0.6); Monocytes Percent Auto 9.5 % (2.6-8.5); Neutrophils Absolute Auto 3.4 K/mm3 (1.3-6.7); Neutrophils Percent Auto 57.1 % (45.5-73.1); Platelet Count Result 321 k/mm3 (150-375); Red Blood Count 4.36 M/mm3 (4.2-5.4); Red Cell Distribution Width 11.6 % (11.5-14.5)
== END 2020-10-27 08:32 | disposition home or self-care (01) ==
PROVIDERS: PCP Family Medicine; Visit Provider Physician Assistant
DX: N10 Acute pyelonephritis (principal)
CPT/HCPCS: 36415; 85025; 99212; G0463

== ENCOUNTER → 2020-11-09 09:26 | Outpatient (CLI) | payer MEDICARE, SELFPAY ==
--- NOTE | ~2020-11-09 | US_ITS ---
EXAMINATION: US abdomen limited EXAM DATE: 11/09/2020 09:52 INDICATION: K76.89 - Other specified diseases of liver . Abnormal CT scan 10/16/2020 TECHNIQUE: Multiple grayscale and Doppler images of the abdomen right upper quadrant were obtained (b y a technologist who performed the scan) and subsequently reviewed. Comparison is made to prior exami nation from 04/11/2007. FINDINGS: The pancreatic head and body are normal in appearance. The pancreatic tail is not visualized. The l iver has normal echogenicity. Mild liver surface undulations without jenni nodularity. There are no focal liver lesions identified. There is no evidence of intrahepatic biliary duct dilation. Portal venous flow was seen in the hepatopedal, normal direction and has normal Doppler waveform. No right -sided hydronephrosis. Common bile duct measures 4 mm, which is normal. The gallbladder wall is normal in thickness, with ex pected amount of distention. No sonographic evidence of pericholecystic fluid. There is large perip herally calcified gallstone, wall echo shadow appearance. Technologist performing exam reports patie nt did not demonstrate sonographic Noriega's sign. Please note that this sign is less reliable in pat ients who have received pain medication. IMPRESSION: Cholelithiasis. Mild liver surface undulations without jenni nodularity. Reviewed, dictated and finalized at location A. HERS AIDE IMPRESSION: Cholelithiasis. Mild liver surface undulations without jenni nodula singh.
== END ==
PROVIDERS: PCP Family Medicine; Visit Provider Physician Assistant
DX: K76.89 Other specified diseases of liver (principal); K80.20 Calculus of gallbladder without cholecystitis without obstruction
CPT/HCPCS: 76705

== ENCOUNTER 2021-01-28 07:58 | Outpatient (CLI) | payer MEDICARE, SELFPAY ==
[2021-01-28 08:54] LABS: Add Urine Microscopic? YES; Appearance Urine Cloudy (Clear); Bacteria Urine 4+ /hpf; Bilirubin Urine Negative (Negative); Blood Urine Negative (Negative); Color Urine Yellow (Yellow); Glucose Urine UA Negative (Negative); Ketones Urine Negative (Negative); Leukocyte Esterase Ur 3+ LEU/UL (NEGATIVE); Mucus Urine Rare /lpf; Nitrate Urine Negative (Negative); Protein Urine Negative (Negative); Squamous Epithelial Cell Urine Moderate /hpf (Few); Urobilinogen Urine Negative mg/dL (<2.0); WBC Urine 51-75 /hpf (0-3)
[2021-01-28 09:36] LABS: Alanine Aminotransferase 20 U/L (4-35); Albumin Level 3.9 g/dL (3.5-5.1); Alkaline Phosphatase 66 U/L (38-126); Anion Gap 1 mmol/L (8-16); Aspartate Amino Transferase 35 U/L (14-36); Bilirubin,Total 0.6 mg/dL (0.2-1.3); Blood Urea Nitrogen 12 mg/dL (7-17); Carbon Dioxide 33 mmol/L (22-30); Chloride 105 mmol/L (98-107); Estimated Glomerular Filt Rate 53; Glucose 99 mg/dL (65-105); Potassium 3.9 mmol/L (3.4-5.0); Sodium 139 mmol/L (137-145)
== END 2021-01-28 07:59 | disposition home or self-care (01) ==
PROVIDERS: PCP Family Medicine; Visit Provider Nurse Practitioner Family
DX: N39.0 Urinary tract infection, site not specified (principal); I10 Essential (primary) hypertension
CPT/HCPCS: 36415; 80053; 81001; 87077; 87086; 87088; 87186; 99212; G0463

== ENCOUNTER 2021-05-10 10:25 | Outpatient (CLI) | payer MEDICARE, SELFPAY ==
[2021-05-10 12:14] LABS: Add Urine Microscopic? YES; Appearance Urine Clear (Clear); Bacteria Urine Trace /hpf; Bilirubin Urine Negative (Negative); Blood Urine Negative (Negative); Color Urine Colorless (Yellow); Glucose Urine UA Negative (Negative); Ketones Urine Negative (Negative); Leukocyte Esterase Ur 1+ LEU/UL (NEGATIVE); Nitrate Urine Negative (Negative); Protein Urine Negative (Negative); RBC Urine 0-2 /hpf (0-2); Squamous Epithelial Cell Urine Occasional /hpf (Few); Urobilinogen Urine Negative mg/dL (<2.0)
[2021-05-10 12:16] LABS: Specific Grav Ur 1.003 (1.001-1.035)
== END 2021-05-10 10:26 | disposition home or self-care (01) ==
PROVIDERS: PCP Family Medicine; Visit Provider Nurse Practitioner Family
DX: N39.0 Urinary tract infection, site not specified (principal)
CPT/HCPCS: 81001; 87077; 87086; 87186

== ENCOUNTER → 2021-05-12 16:37 | Outpatient (CLI) | payer MEDICARE, SELFPAY ==
--- NOTE | ~2021-05-12 | XR_ITS ---
EXAMINATION: XR hip BI 2V w AP pelvis EXAM DATE: 05/12/2021 17:36 INDICATION: Intermittent bilateral hip pain, left side worse.. TECHNIQUE: Each hip imaged independently (separate right and also left hip) 'frog leg' and frontal p rojections for interpretation. Frontal projection pelvis. Comparison is made to prior examination fr 02/11/2019. FINDINGS: No radiographic evidence of hip avascular necrosis. There is moderate to severe right hip, mild to moderate left hip primary osteoarthritis. There are no acute fractures or dislocations ident ified. There is no subcutaneous gas. The soft tissue is unremarkable. There are no radiopaque for eign bodies. IMPRESSION: 1. Right hip moderate to severe osteoarthritis. 2. Left hip mild to moderate osteoarthritis. Reviewed, dictated and finalized at location A.
--- NOTE | ~2021-05-12 | XR_ITS ---
EXAMINATION: XR ribs BI 3V w CXR 2V EXAM DATE: 05/12/2021 17:36 INDICATION: Anterior rib and left lateral rib pain, states history of fall 3-4 days ago. TECHNIQUE: Frontal projection of the upper left ribs, frontal projection of the lower left ribs, obli que projection of the left ribs. Frontal projection of the upper right ribs, frontal projection of t he lower right ribs, oblique projection of the right ribs, frontal and lateral chest x-ray(s) for int erpretation. Comparison is made to prior examination from 10/11/2015. FINDINGS: Bones are osteopenic. Please note that osteopenia limits sensitivity for detecting fractur es by radiographs. There are no displaced acute rib fractures identified. Consider educating patient that even if there is a radiographically occult nondisplaced rib fracture, there is no specific lawrence tment other than to refrain from activity that prevents healing. No confluent consolidation, pneumothorax or pleural effusion suspected. Cardiomediastinal silhouette is normal. There is aortic arteriosclerosis. IMPRESSION: No acute displaced rib fractures bilaterally. Reviewed, dictated and finalized at location A.
--- NOTE | ~2021-05-12 | XR_ITS ---
EXAMINATION: XR shoulder LT min 2V EXAM DATE: 05/12/2021 17:36 INDICATION: M25.512 - Pain in left shoulder. TECHNIQUE: The following left shoulder projections obtained: frontal projection with internal rotatio n, frontal projection with external rotation, [place], and axillary (4+ views). There is no prior st udy for comparison. FINDINGS: No evidence of left shoulder rotator cuff calcific tendinosis. There is mild to moderate glenohumeral joint, mild to moderate acromioclavicular joint primary osteoarthritis. There are no acu te fractures or dislocations identified. There is no subcutaneous gas. The soft tissue is unremarka ble. There are no radiopaque foreign bodies. 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 Reviewed, dictated and finalized at location A.
== END ==
PROVIDERS: PCP Family Medicine; Visit Provider Physician Assistant
DX: R07.81 Pleurodynia (principal); M16.0 Bilateral primary osteoarthritis of hip; M19.012 Primary osteoarthritis, left shoulder
CPT/HCPCS: 71046; 71110; 73030; 73521

== ENCOUNTER 2021-06-10 11:43 | Outpatient (NON) | payer MEDICARE, SELFPAY ==
[2021-06-10 12:52] LABS: Add Urine Microscopic? YES; Appearance Urine Cloudy (Clear); Bacteria Urine Trace /hpf; Bilirubin Urine Negative (Negative); Blood Urine 2+ (Negative); Color Urine Yellow (Yellow); Glucose Urine UA Negative (Negative); Ketones Urine Negative (Negative); Leukocyte Esterase Ur 3+ LEU/UL (NEGATIVE); Nitrate Urine Negative (Negative); Protein Urine Negative (Negative); Specific Grav Ur 1.008 (1.001-1.035); Urobilinogen Urine Negative mg/dL (<2.0); WBC Urine 16-20 /hpf (0-3)
== END 2021-06-10 11:44 | disposition home or self-care (01) ==
LOC: ANHLAB 11:46
PROVIDERS: PCP Family Medicine; Visit Provider Physician Assistant
DX: N39.0 Urinary tract infection, site not specified (principal)
CPT/HCPCS: 81001; 87077; 87086; 87186

== ENCOUNTER 2021-06-17 11:54 | Outpatient (CLI) | payer MEDICARE, SELFPAY ==
[2021-06-17 13:19] LABS: Add Urine Microscopic? YES; Appearance Urine Cloudy (Clear); Bacteria Urine Trace /hpf; Bilirubin Urine Negative (Negative); Blood Urine Negative (Negative); Budding Yeast Urine Present /hpf; Color Urine Yellow (Yellow); Glucose Urine UA Negative (Negative); Ketones Urine Negative (Negative); Leukocyte Esterase Ur 2+ LEU/UL (NEGATIVE); Mucus Urine Rare /lpf; Nitrate Urine Negative (Negative); Protein Urine Negative (Negative); RBC Urine 21-50 /hpf (0-2); Specific Grav Ur 1.014 (1.001-1.035); Squamous Epithelial Cell Urine Many /hpf (Few); Urobilinogen Urine Negative mg/dL (<2.0)
== END 2021-06-17 11:55 | disposition home or self-care (01) ==
PROVIDERS: PCP Family Medicine; Visit Provider Physician Assistant
DX: N39.0 Urinary tract infection, site not specified (principal)
CPT/HCPCS: 81001

== ENCOUNTER 2021-06-24 18:40 | Emergency (ER) | payer MEDICARE, SELFPAY ==
--- NOTE | ~2021-06-24 | XR_ITS ---
EXAMINATION: XR chest 2V DATE: 06/24/2021 20:23 INDICATION: Back and left arm pain. TECHNIQUE: Frontal and lateral views of the chest were obtained. COMPARISON: Chest 2 views 05/12/2021, CT abdomen and pelvis 10/16/2020 FINDINGS: There is mild atelectasis in left lower lung zone. No pleural effusion or pneumothorax. The heart size is normal. There are gallstones in the gallbladder. There is a chronic compression fractu re of T12. IMPRESSION: 1. Mild atelectasis in left lower lung zone. 2. Cholelithiasis. Reviewed, dictated and finalized at location A.
[2021-06-24 18:48] VITALS: BP 189/85; PULSE 86; RESP 16; TEMP 36.6; O2SAT 98
--- NOTE | 2021-06-24 19:14 | ECG_ITS ---
Measurements Intervals [place] Rate: 80 P: 47 [place]: 142 QRS: 4 QRSD: 83 T: 20 QT: 382 QTc: 443 Interpretive Statements SINUS RHYTHM WITH SINUS ARRHYTHMIA EARLY PRECORDIAL R/S TRANSITION BORDERLINE ST-T WAVE ABNORMALITY- INFERIOR LEADS BASELINE ARTIFACT- II, III, AVF, V1, V3-V6 BORDERLINE ECG Electronically Signed On 06-24-2021 20:51:13 CDT by Jae Savage D.O.
--- NOTE | 2021-06-24 19:17 | ED.BACK ---
HPI - Back Pain/Injury General Chief Complaint: Back Pain/Injury Stated Complaint: Multiple Complaints Time Seen by Provider: 06/24/21 19:02 History of Present Illness HPI Narrative: Patient presents with back pain. Patient reports a history of urinary tract infections that cause pyelonephritis. She is being treated for UTI by her primary care physician she is initially on Bactrim that did not seem to help her symptoms and then she was switched to Macrobid she is now getting low back pain. Her pain is achy, constant, feels similar to her kidney infections. She denies fevers, nausea, vomiting, abdominal pain. She also reports left arm pain that has been present since September is intermittent and tends to be worse than when she is feeling unwell. Related Data Allergies Allergy/AdvReac Type Severity Reaction Status Date / Time celecoxib Allergy Unknown abdominal Verified 06/10/21 09:46 pain ciprofloxacin Allergy Unknown Unknown Verified 06/10/21 09:46 valacyclovir AdvReac Severe Headache Verified 06/10/21 09:46 Review of Systems Review of Systems: CONSTITUTIONAL: Denies fever, chills, or sweats. EYES: Denies visual changes, redness, or discharge. ENT: Denies rhinorrhea, congestion, sore throat, or otalgia. CARDIOVASCULAR: Denies chest pain, palpitations, or edema. RESPIRATORY: Denies cough or dyspnea. GASTROINTESTINAL: Denies abdominal pain, nausea, vomiting, or diarrhea. GENITOURINARY: Denies dysuria or hematuria. SKIN: Denies rash or itching. MUSCULOSKELETAL: Denies joint pain, or myalgia. NEUROLOGIC: Denies headache, numbness, dizziness, or weakness. PSYCHIATRIC: Denies anxiety or depression. All systems reviewed & are unremarkable except as noted in HPI and below PMFSH Past Medical History Medical History Arthritis Decreased hearing Depression HLD (hyperlipidemia) HTN (hypertension) Hypothyroidism Osteoporosis Seasonal allergies UTI (urinary tract infection) UTI (urinary tract infection) Vitiligo Surgical History Surgical History H/O repair of left rotator cuff H/O: hysterectomy History of back surgery History of colon resection Hx of appendectomy Family History Family History Mother Hypertension Breast cancer Father Patient's father is Family history of chronic obstructive pulmonary disease Emphysema Sibling Family history of diabetes mellitus in first degree relative Social History Social History Social History: Independent, active, daughters nearby that helps with groceries and bills Smoking status: Never smoker Second hand tobacco smoke exposure: No Alcohol intake: never Substance use: never Substance use type: does not use Additional living arrangements comments: Lives with Gender identity (if verbalized by the patient): Female Spiritual care concerns: No Exam Narrative: GENERAL: Well-appearing, well-nourished, and in no acute distress. HEAD: Normocephalic, atraumatic. EYES: PERRLA and EOMI. ENT: Nares clear, no rhinorrhea or epistaxis. Mucous membranes moist. NECK: Supple. No masses. No JVD CHEST: Clear to auscultation. No respiratory distress. No wheezes rales or rhonchi ABDOMEN: Soft, nontender, nondistended, normal active bowel sounds. BACK: CVA tenderness on the L. EXTREMITIES: Normal range of motion. No edema. SKIN: Warm, dry, no rash. NEURO: No focal deficits. Alert and oriented x3. PSYCH: Normal mood and affect. Course Reevaluation(s) Reevaluation #1: Patient reports feeling improved results and plan reviewed with patient. Patient comfortable with the outpatient plan. Date: 06/24/21 Time: 21:09 Vital Signs Vital signs: Vital Signs Temperature 36.6 C 06/24/21 18:48 Pulse Rate 86
[2021-06-24 19:59] LABS: Basophils Absolute Auto 0.1 K/mm3 (0.0-0.1); Basophils Percent Auto 1.3 % (0.2-1.2); Eosinophils Absolute Auto 0.2 K/mm3 (0-0.3); Eosinophils Percent Auto 1.7 % (0-4.4); Hematocrit 47.1 % (37.0-47.0); Hemoglobin 15.3 g/dL (12.0-15.0); Immature Granulocyte Absolute 0.02 K/mm3 (0.00-0.031); Immature Granulocyte Percent A 0.2 % (0-0.5); Lymphocytes Absolute Auto 2.65 K/mm3 (0.9-3.2); Lymphocytes Percent Auto 28.4 % (18.3-44.2); Mean Corpuscular HGB Conc 32.5 g/dl (32-36); Mean Corpuscular Hemoglobin 30.8 pg (26-34); Mean Corpuscular Volume 94.8 fl (80-100); Mean Platelet Volume 10.7 fl (7.4-10.4); Monocytes Absolute Auto 0.9 K/mm3 (0.1-0.6); Monocytes Percent Auto 9.4 % (2.6-8.5); Neutrophils Absolute Auto 5.5 K/mm3 (1.3-6.7); Platelet Count Result 225 k/mm3 (150-375); Red Blood Count 4.97 M/mm3 (4.2-5.4); White Blood Count 9.3 K/mm3 (4.5-10.0)
[2021-06-24 20:05] LABS: Add Urine Microscopic? YES; Appearance Urine Cloudy (Clear); Bacteria Urine Trace /hpf; Bilirubin Urine Negative (Negative); Blood Urine Negative (Negative); Budding Yeast Urine Present /hpf; Color Urine Yellow (Yellow); Glucose Urine UA Negative (Negative); Ketones Urine Negative (Negative); Leukocyte Esterase Ur 1+ LEU/UL (Negative); Nitrate Urine Negative (Negative); Protein Urine Negative (Negative); Specific Grav Ur 1.005 (1.001-1.035); Squamous Epithelial Cell Urine Many /hpf (Few); Urobilinogen Urine Negative mg/dL (<2.0)
[2021-06-24 20:13] LABS: Lactic Acid Reflex 1.5 mmol/L (0.7-2.1)
[2021-06-24 20:33] LABS: Alanine Aminotransferase 16 U/L (4-35); Albumin Level 4.2 g/dL (3.5-5.1); Alkaline Phosphatase 62 U/L (38-126); Anion Gap 5 mmol/L (8-16); Aspartate Amino Transferase 34 U/L (14-36); Bilirubin,Total 0.7 mg/dL (0.2-1.3); Blood Urea Nitrogen 17 mg/dL (7-17); Calcium 9.2 mg/dL (8.4-10.2); Carbon Dioxide 28 mmol/L (22-30); Chloride 101 mmol/L (98-107); Estimated CRCL calculation 33 ml/min; Estimated Glomerular Filt Rate 53; Glucose 101 mg/dL (65-110); Potassium 4.3 mmol/L (3.4-5.0); Sodium 134 mmol/L (137-145)
[2021-06-24] MEDS: SODIUM CHLORIDE 0.9% IV 1,000 ML 999 ML IV CONT ×2 (20:38)
[2021-06-24 21:25] VITALS: BP 180/94; PULSE 83; RESP 19; O2SAT 100
[2021-06-24 22:36] VITALS: BP 182/90; PULSE 93; RESP 16; O2SAT 100
== END 2021-06-24 22:36 | disposition home or self-care (01) ==
PROVIDERS: Emergency Provider Emergency Medicine; PCP Family Medicine
DX: N10 Acute pyelonephritis (principal); E78.5 Hyperlipidemia, unspecified; I10 Essential (primary) hypertension; E03.9 Hypothyroidism, unspecified; M19.90 Unspecified osteoarthritis, unspecified site; M81.0 Age-related osteoporosis without current pathological fracture; Z87.440 Personal history of urinary (tract) infections; Z90.49 Acquired absence of other specified parts of digestive tract; R94.31 Abnormal electrocardiogram [ECG] [EKG]
CPT/HCPCS: 36415; 71046; 80053; 81001; 83605; 85025; 87040; 87086; 93005; 96361; 96365; 96367; 99284; J0131; J0456; J0696; J7030

== ENCOUNTER 2021-07-07 15:37 | Outpatient (CLI) | payer MEDICARE, SELFPAY ==
--- NOTE | ~2021-07-07 | XR_ITS ---
XR lumbar spine 2-3V DATE: 07/07/2021 15:56 INDICATION: Chronic low back pain TECHNIQUE: AP, lateral, coned lateral lumbosacral views COMPARISON: 10/16/2020 CT lumbar spine 10/12/2017 lumbar spine FINDINGS: There is diffuse osteopenia. There is mild levoscoliosis of the thoracolumbar spine. Status post L5 laminectomy. Diffuse idiopathic skeletal hyperostosis of the thoracic spine. There is moderate loss of height and anterior wedging of T12 which is chronic hand stable since 10/16. There is mild loss of height and anterior wedging at L3 due to mild chronic compression fracture defo rmity. There is severe degenerative disc disease is very prominent osteophyte formation at T12-L1. There is moderately severe degenerative disc disease at L1-2, L2-3 and L4-5, moderate degenerative di sc disease at L3-4. There is severe degenerative disc disease at L5-S1. There is degenerative change at the apophyseal joints with associated grade 1 anterolisthesis at L4-5 . The sacroiliac joints are intact. There is severe calcification of the abdominal aorta and iliac arteries no abdominal aortic aneurysm. There is milk of calcium bile and multiple gallstones. IMPRESSION: Diffuse osteopenia Mild levoscoliosis Status post L5 laminectomy Diffuse idiopathic skeletal hyperostosis of the thoracic spine Chronic T12 and L3 fracture deformities Moderate to severe multilevel degenerative disc disease Cholelithiasis, milk of calcium bile Reviewed, dictated and finalized at location A.
== END 2021-07-07 15:38 | disposition home or self-care (01) ==
LOC: ANHIMG 15:41
PROVIDERS: PCP Family Medicine; Visit Provider Physician Assistant
DX: M41.9 Scoliosis, unspecified (principal); M47.815 Spondylosis without myelopathy or radiculopathy, thoracolumbar region; M47.817 Spondylosis without myelopathy or radiculopathy, lumbosacral region; M48.56XA Collapsed vertebra, not elsewhere classified, lumbar region, initial encounter for fracture; M48.14 Ankylosing hyperostosis [Forestier], thoracic region; K80.20 Calculus of gallbladder without cholecystitis without obstruction
CPT/HCPCS: 72100

== ENCOUNTER 2021-07-27 08:48 | Outpatient (CLI) | payer MEDICARE, SELFPAY ==
[2021-07-27 09:27] LABS: Basophils Absolute Auto 0.1 K/mm3 (0.0-0.1); Basophils Percent Auto 0.8 % (0.2-1.2); Eosinophils Absolute Auto 0.2 K/mm3 (0-0.3); Eosinophils Percent Auto 2.2 % (0-4.4); Hematocrit 41.4 % (37.0-47.0); Hemoglobin 13.3 g/dL (12.0-15.0); Immature Granulocyte Absolute 0.03 K/mm3 (0.00-0.031); Immature Granulocyte Percent A 0.4 % (0-0.5); Lymphocytes Absolute Auto 1.66 K/mm3 (0.9-3.2); Lymphocytes Percent Auto 22.7 % (18.3-44.2); Mean Corpuscular HGB Conc 32.1 g/dl (32-36); Mean Corpuscular Hemoglobin 31.2 pg (26-34); Mean Corpuscular Volume 97.2 fl (80-100); Mean Platelet Volume 10.8 fl (7.4-10.4); Monocytes Absolute Auto 0.8 K/mm3 (0.1-0.6); Monocytes Percent Auto 10.7 % (2.6-8.5); Neutrophils Absolute Auto 4.6 K/mm3 (1.3-6.7); Neutrophils Percent Auto 63.2 % (45.5-73.1); Platelet Count Result 204 k/mm3 (150-375); Red Blood Count 4.26 M/mm3 (4.2-5.4); Red Cell Distribution Width 11.5 % (11.5-14.5); White Blood Count 7.3 K/mm3 (4.5-10.0)
[2021-07-27 09:36] LABS: Alanine Aminotransferase 30 U/L (4-35); Albumin Level 4.2 g/dL (3.5-5.1); Alkaline Phosphatase 77 U/L (38-126); Anion Gap 3 mmol/L (8-16); Aspartate Amino Transferase 34 U/L (14-36); Bilirubin,Total 0.9 mg/dL (0.2-1.3); Blood Urea Nitrogen 20 mg/dL (7-17); Carbon Dioxide 31 mmol/L (22-30); Chloride 104 mmol/L (98-107); Cholesterol 225 mg/dL (0-200); Estimated Glomerular Filt Rate 60; Glucose 102 mg/dL (65-110); HDL Direct 68 mg/dL; Potassium 4.1 mmol/L (3.4-5.0); Sodium 138 mmol/L (137-145); Triglycerides 150 mg/dL (<150)
[2021-07-27 09:46] LABS: LDL Cholesterol Direct 104 mg/dL
[2021-07-27 10:06] LABS: Thyroid Stimulating Hormone 0.641 uIU/mL (0.465-4.680)
[2021-07-27 10:23] LABS: Vitamin D 25 Hydroxy 34.5 ng/mL
[2021-07-27 12:09] LABS: Add Urine Microscopic? YES; Appearance Urine Clear (Clear); Bilirubin Urine Negative (Negative); Blood Urine Negative (Negative); Color Urine Yellow (Yellow); Glucose Urine UA Negative (Negative); Ketones Urine Negative (Negative); Leukocyte Esterase Ur 1+ LEU/UL (NEGATIVE); Mucus Urine Rare /lpf; Nitrate Urine Negative (Negative); Protein Urine Negative (Negative); Squamous Epithelial Cell Urine Many /hpf (Few); Urobilinogen Urine Negative mg/dL (<2.0)
== END 2021-07-27 08:49 | disposition home or self-care (01) ==
PROVIDERS: PCP Family Medicine; Visit Provider Physician Assistant
DX: E03.9 Hypothyroidism, unspecified (principal); M81.0 Age-related osteoporosis without current pathological fracture; R53.1 Weakness; Z00.00 Encounter for general adult medical examination without abnormal findings; M85.89 Other specified disorders of bone density and structure, multiple sites; E78.5 Hyperlipidemia, unspecified; I10 Essential (primary) hypertension
CPT/HCPCS: 36415; 80053; 80061; 81001; 82306; 84443; 85025; 87086; 99212; G0463

== ENCOUNTER 2021-09-23 15:25 | Outpatient (CLI) | payer MEDICARE, SELFPAY ==
--- NOTE | ~2021-09-23 | XR_ITS ---
EXAMINATION: XR abdomen/kub 1V DATE: 09/23/2021 15:51 INDICATION: Right kidney stone. TECHNIQUE: A supine view of the abdomen on 2 radiographs was obtained. COMPARISON: CT abdomen and pelvis 10/16/2020 FINDINGS: There are no dilated loops of bowel. There are gallstones in the gallbladder. IMPRESSION: 1. No visible urolithiasis. 2. Cholelithiasis. Reviewed, dictated and finalized at location A. CUTTING MACHINE OPERATOR
== END 2021-09-23 15:26 | disposition home or self-care (01) ==
LOC: ANHIMG 15:29
PROVIDERS: PCP Family Medicine; Visit Provider Urology
DX: N20.0 Calculus of kidney (principal); K80.20 Calculus of gallbladder without cholecystitis without obstruction
CPT/HCPCS: 74018

== ENCOUNTER 2021-10-19 19:17 | Emergency (ER) | payer MEDICARE, SELFPAY ==
--- NOTE | ~2021-10-19 | XR_ITS ---
EXAMINATION: XR lumbar spine 2-3V DATE: 10/19/2021 22:31 INDICATION: Low back pain TECHNIQUE: Anteroposterior and lateral views of the lumbar spine, and cone-down lateral view of the l umbosacral junction were obtained. COMPARISON: 07/07/2021 FINDINGS: There are unchanged mild compression fractures of T12 and L3. No new fracture is identified . There are 4 mm of stable anterolisthesis of L4 on L5. There is severe loss of intervertebral disc s pace height at L5-S1 and moderate loss of disc space height at L1-2, L2-3, and L4-5. Calcified athero sclerosis is noted. There is hyperattenuating material within the gallbladder. Severe left hip osteoa rthritis is noted. IMPRESSION: 1. Stable compression fractures of T12 and L3 without acute osseous abnormality. 2. Severe lumbar spondylosis. Reviewed, dictated and finalized at location F. CONTROL OFFICER IMPRESSION: 1. Stable compression fractures of T12 and L3 without acute osseous abnormality . 2. Severe lumbar spondylosis.
[2021-10-19 19:44] VITALS: BP 146/73; PULSE 100; RESP 16; TEMP 37; O2SAT 98
[2021-10-19 21:48] VITALS: BP 136/53; PULSE 95; TEMP 37.4; O2SAT 98
[2021-10-19] MEDS: CYCLOBENZAPRINE HCL 10 MG TABLET 5 MG PO (22:33)
--- NOTE | 2021-10-19 22:39 | PC.NURSE ---
Pt returns from radiology, med given po for pain. Assisted back to bed with assist x1.
[2021-10-19 23:02] LABS: Add Urine Microscopic? YES; Appearance Urine Cloudy (Clear); Bacteria Urine Trace /hpf; Bilirubin Urine Negative (Negative); Color Urine Yellow (Yellow); Glucose Urine UA Negative (Negative); Ketones Urine Trace mg/dL (Negative); Leukocyte Esterase Ur 2+ LEU/UL (Negative); Mucus Urine Rare /lpf; Nitrate Urine Positive (Negative); Protein Urine Negative (Negative); Squamous Epithelial Cell Urine Many /hpf (Few); Urobilinogen Urine Negative mg/dL (<2.0); WBC Clumps Urine Present /HPF; WBC Urine >75 /hpf
[2021-10-19 23:12] LABS: Blood Urine Negative (Negative)
--- NOTE | 2021-10-19 23:42 | ED.BACK ---
HPI - Back Pain/Injury General Chief Complaint: Back Pain/Injury Stated Complaint: Neck and Back Pain x 2 days Time Seen by Provider: 10/19/21 21:08 History of Present Illness HPI Narrative: Patient is an 86-year-old female who presents ER ER with recent diagnosis of right-sided sciatica. Reports right-sided low back pain that goes into her buttock and then into her thigh. No numbness or tingling in her legs or groin. No urinary or fecal retention. She does have incontinence due to pain and not being able to make it to the bathroom in time. She started walking with a walker due to her pain. She is prescribed ibuprofen 3 times a day but takes it twice a day, she has been taking [place] as needed without improvement. Has history of previous back surgery. No known trauma. Patient also has history of recurrent UTI and is concerned this may be related. Related Data Allergies Allergy/AdvReac Type Severity Reaction Status Date / Time celecoxib Allergy Unknown abdominal Verified 10/19/21 20:02 pain ciprofloxacin Allergy Unknown headache Verified 10/19/21 20:02 valacyclovir AdvReac Severe Headache Verified 10/19/21 20:02 Review of Systems Review of Systems: All systems reviewed & are unremarkable except as noted in HPI and below Constitutional: Constitutional: Denies chills, Denies fever(s) and Denies weakness Gastrointestinal: Gastrointestinal: Denies abdominal pain, Denies nausea and Denies vomiting Genitourinary: Genitourinary: Reports nocturia, Denies dysuria, Denies flank pain and Reports urinary incontinence Musculoskeletal: Musculoskeletal: Reports back pain, Denies arthralgias, Denies joint swelling and Reports muscle cramps Neurologic: Denies focal weakness and Denies numbness [facility] Past Medical History Medical History Arthritis Decreased hearing Depression HLD (hyperlipidemia) HTN (hypertension) Hypothyroidism Left shoulder pain Osteoporosis Seasonal allergies UTI (urinary tract infection) UTI (urinary tract infection) Vitiligo Surgical History Surgical History H/O repair of left rotator cuff H/O: hysterectomy History of back surgery History of colon resection Hx of appendectomy Family History Family History Mother Hypertension Breast cancer Father Patient's father is Family history of chronic obstructive pulmonary disease Emphysema Sibling Family history of diabetes mellitus in first degree relative Other History of lung disease Social History Social History Social History: Independent, active, daughters nearby that helps with groceries and bills Second hand tobacco smoke exposure: No Alcohol intake: never Substance use: never Substance use type: does not use Additional living arrangements comments: Lives with Gender identity (if verbalized by the patient): Female Spiritual care concerns: No Exam Narrative: GENERAL: Well-appearing, well-nourished, and in no acute distress. HEAD: Normocephalic, atraumatic. CHEST: Clear to auscultation. No respiratory distress. HEART: Regular rate and rhythm. Normal peripheral pulses. Back: No reproducible midline tenderness of the T/L-spine. There is paraspinal muscular tenderness on the right side near the level of L3. No tenderness of the buttock. EXTREMITIES: Normal range of motion. No edema. No tenderness over the right hip. SKIN: Warm, dry, no rash. NEURO: Alert and oriented x3. PSYCH: Normal mood and affect. Course Course Emergency Course: Patient given muscle relaxer. Discussed UTI. Recommend patient take scheduled anti-inflammatories and follow-up with PCP. Vital Signs Vital signs: Vital Signs Temperature 98.6 F 10/19/21 19:44 Pulse Rate 100 10/19/21 1
[2021-10-19] MEDS: CEPHALEXIN 500 MG CAPSULE PO (23:51)
== END 2021-10-20 00:05 | disposition home or self-care (01) ==
PROVIDERS: Emergency Provider Emergency Medicine; PCP Family Medicine
DX: M54.41 Lumbago with sciatica, right side (principal); N39.0 Urinary tract infection, site not specified; E78.5 Hyperlipidemia, unspecified; I10 Essential (primary) hypertension; E03.9 Hypothyroidism, unspecified; M19.90 Unspecified osteoarthritis, unspecified site; M81.0 Age-related osteoporosis without current pathological fracture; Z90.49 Acquired absence of other specified parts of digestive tract; M47.816 Spondylosis without myelopathy or radiculopathy, lumbar region
CPT/HCPCS: 72100; 81001; 87077; 87086; 87186; 99283; A9270

== ENCOUNTER 2021-11-01 11:08 | Outpatient (CLI) | payer MEDICARE, SELFPAY ==
[2021-11-01 12:30] LABS: Add Urine Microscopic? YES; Appearance Urine Turbid (Clear); Bacteria Urine 1+ /hpf; Bilirubin Urine Negative (Negative); Blood Urine 1+ (Negative); Budding Yeast Urine Present /hpf; Color Urine Yellow (Yellow); Glucose Urine UA Negative (Negative); Ketones Urine Negative (Negative); Leukocyte Esterase Ur 3+ LEU/UL (NEGATIVE); Nitrate Urine Positive (Negative); Protein Urine 1+ mg/dL (Negative); RBC Urine >75 /hpf (0-2); Specific Grav Ur 1.013 (1.001-1.035); Squamous Epithelial Cell Urine Many /hpf (Few); Urobilinogen Urine Negative mg/dL (<2.0); WBC Urine >75 /hpf (0-3)
== END 2021-11-01 11:09 | disposition home or self-care (01) ==
LOC: ANHLAB 11:11
PROVIDERS: PCP Physician Assistant; Visit Provider Physician Assistant
DX: N39.0 Urinary tract infection, site not specified (principal)
CPT/HCPCS: 81001; 87077; 87086; 87186

== ENCOUNTER 2022-07-27 08:14 | Outpatient (CLI) | payer MEDICARE, SELFPAY ==
[2022-07-27 09:03] LABS: Alanine Aminotransferase 15 U/L (6-35); Albumin Level 3.9 g/dL (3.5-5.1); Alkaline Phosphatase 65 U/L (38-126); Anion Gap 6 mmol/L (8-16); Aspartate Amino Transferase 24 U/L (14-36); Bilirubin,Total 0.7 mg/dL (0.2-1.3); Blood Urea Nitrogen 15 mg/dL (7-17); Calcium 8.7 mg/dL (8.4-10.2); Carbon Dioxide 25 mmol/L (22-30); Chloride 104 mmol/L (98-107); Estimated Glomerular Filt Rate 60; Glucose 101 mg/dL (65-110); Potassium 3.9 mmol/L (3.4-5.0); Sodium 135 mmol/L (137-145)
== END 2022-07-27 08:15 | disposition home or self-care (01) ==
LOC: ANHLAB 08:17
PROVIDERS: PCP Family Medicine; Visit Provider Family Medicine
DX: I10 Essential (primary) hypertension (principal); E03.9 Hypothyroidism, unspecified
CPT/HCPCS: 36415; 80053; 84443

== ENCOUNTER 2023-02-21 07:26 | Outpatient (CLI) | payer MEDICARE, SELFPAY ==
[2023-02-21 08:04] LABS: Hematocrit 43.6 % (37.0-47.0); Mean Corpuscular HGB Conc 32.1 g/dl (32-36); Mean Corpuscular Hemoglobin 31.2 pg (26-34); Mean Corpuscular Volume 97.1 fl (80-100); Mean Platelet Volume 10.9 fl (7.4-10.4); Platelet Count Result 219 k/mm3 (150-375); Red Blood Count 4.49 M/mm3 (4.2-5.4); Red Cell Distribution Width 11.1 % (11.5-14.5); White Blood Count 6.1 K/mm3 (4.5-10.0)
[2023-02-21 08:14] LABS: Alanine Aminotransferase 16 U/L (6-35); Alkaline Phosphatase 53 U/L (38-126); Anion Gap 4 mmol/L (8-16); Aspartate Amino Transferase 26 U/L (14-36); Bilirubin,Total 0.7 mg/dL (0.2-1.3); Blood Urea Nitrogen 15 mg/dL (7-17); Calcium 8.8 mg/dL (8.4-10.2); Carbon Dioxide 30 mmol/L (22-30); Chloride 104 mmol/L (98-107); Estimated Glomerular Filt Rate 60; Glucose 96 mg/dL (65-110); Potassium 4.2 mmol/L (3.4-5.0); Sodium 138 mmol/L (137-145)
[2023-02-21 11:21] LABS: Appearance Urine Cloudy (Clear); Bacteria Urine 4+ /hpf; Bilirubin Urine Negative (Negative); Blood Urine Negative (Negative); Color Urine Yellow (Yellow); Glucose Urine UA Negative (Negative); Ketones Urine Negative (Negative); Leukocyte Esterase Ur 2+ LEU/UL (NEGATIVE); Nitrate Urine Positive (Negative); Non Pathogenic Casts 0-2; Protein Urine Negative (Negative); RBC Urine 0-2 /hpf (0-2); Specific Grav Ur 1.012 (1.001-1.035); Squamous Epithelial Cell Urine Few /hpf (Few); Urobilinogen Urine 0.2 mg/dL (<2.0); WBC Urine 21-50 /hpf (0-3); pH Urine 6.5 (5.0-9.0)
[2023-02-21 12:10] LABS: Add Urine Microscopic? YES
== END 2023-02-21 07:27 | disposition home or self-care (01) ==
PROVIDERS: PCP Family Medicine; Visit Provider Family Medicine
DX: E03.9 Hypothyroidism, unspecified (principal); I10 Essential (primary) hypertension; N39.0 Urinary tract infection, site not specified
CPT/HCPCS: 36415; 80053; 81001; 84443; 85027; 99212; G0463

== ENCOUNTER 2023-08-28 09:00 | Outpatient (CLI) | payer MEDICARE, SELFPAY ==
[2023-08-28 09:43] LABS: Alanine Aminotransferase 16 U/L (6-35); Albumin Level 3.7 g/dL (3.5-5.1); Alkaline Phosphatase 50 U/L (38-126); Anion Gap 5 mmol/L (8-16); Aspartate Amino Transferase 29 U/L (14-36); Bilirubin,Total 0.8 mg/dL (0.2-1.3); Blood Urea Nitrogen 19 mg/dL (7-17); Calcium 8.8 mg/dL (8.4-10.2); Carbon Dioxide 28 mmol/L (22-30); Chloride 104 mmol/L (98-107); Estimated Glomerular Filt Rate 59; Glucose 112 mg/dL (65-110); Potassium 3.7 mmol/L (3.4-5.0); Sodium 137 mmol/L (137-145)
== END 2023-08-28 09:01 | disposition home or self-care (01) ==
PROVIDERS: PCP Family Medicine; Visit Provider Family Medicine
DX: E03.9 Hypothyroidism, unspecified (principal); I10 Essential (primary) hypertension
CPT/HCPCS: 36415; 80053; 84443; 99212; G0463

== ENCOUNTER 2024-03-31 09:26 | Outpatient (CLI) | payer MEDICARE, SELFPAY ==
[2024-03-31 10:07] LABS: Hematocrit 42.5 % (37.0-47.0); Hemoglobin 13.7 g/dL (12.0-15.0); Mean Corpuscular HGB Conc 32.2 g/dl (32-36); Mean Corpuscular Hemoglobin 30.9 pg (26-34); Mean Corpuscular Volume 95.9 fl (80-100); Platelet Count Result 222 k/mm3 (150-375); Red Blood Count 4.43 M/mm3 (4.2-5.4); Red Cell Distribution Width 11.2 % (11.5-14.5); White Blood Count 6.3 K/mm3 (4.5-10.0)
[2024-03-31 10:15] LABS: Alanine Aminotransferase 16 U/L (6-35); Albumin Level 4.1 g/dL (3.5-5.1); Alkaline Phosphatase 58 U/L (38-126); Anion Gap 4 mmol/L (4-12); Aspartate Amino Transferase 29 U/L (14-36); Blood Urea Nitrogen 15 mg/dL (7-17); Calcium 9.2 mg/dL (8.4-10.2); Carbon Dioxide 29 mmol/L (22-30); Chloride 104 mmol/L (98-107); Cholesterol 225 mg/dL (0-200); Estimated Glomerular Filt Rate 47; Glucose 102 mg/dL (65-110); HDL Direct 58 mg/dL; Potassium 3.8 mmol/L (3.4-5.0); Sodium 137 mmol/L (137-145); Triglycerides 178 mg/dL (<150)
[2024-03-31 10:26] LABS: LDL Cholesterol Direct 133 mg/dL
[2024-03-31 10:47] LABS: Appearance Urine Cloudy (Clear); Bacteria Urine 2+ /hpf; Bilirubin Urine Negative (Negative); Blood Urine Trace (Negative); Color Urine Yellow (Yellow); Glucose Urine UA Negative (Negative); Ketones Urine Negative (Negative); Leukocyte Esterase Ur 3+ LEU/UL (Negative); Nitrate Urine Negative (Negative); Non Pathogenic Casts 0-2; Protein Urine Negative (Negative); RBC Urine 0-2 /hpf (0-2); Specific Grav Ur 1.012 (1.001-1.035); Squamous Epithelial Cell Urine Few /hpf (Few); Urobilinogen Urine 0.2 mg/dL (<2.0); WBC Urine >100 /hpf (0-3); pH Urine 5.5 (5.0-9.0)
[2024-03-31 11:04] LABS: Add Urine Microscopic? YES
== END 2024-03-31 09:27 | disposition home or self-care (01) ==
PROVIDERS: PCP Family Medicine; Visit Provider Family Medicine
DX: E03.9 Hypothyroidism, unspecified (principal); E78.5 Hyperlipidemia, unspecified; Z00.00 Encounter for general adult medical examination without abnormal findings; I10 Essential (primary) hypertension
CPT/HCPCS: 36415; 80053; 80061; 81001; 84443; 85027; 99212; G0463

== ENCOUNTER 2024-09-15 11:25 | Outpatient (CLI) | payer MEDICARE, SELFPAY ==
[2024-09-15 12:44] LABS: Alanine Aminotransferase 13 U/L (6-35); Albumin Level 3.9 g/dL (3.5-5.1); Alkaline Phosphatase 49 U/L (38-126); Anion Gap 3 mmol/L (4-12); Aspartate Amino Transferase 25 U/L (14-36); Bilirubin,Total 0.7 mg/dL (0.2-1.3); Blood Urea Nitrogen 11 mg/dL (7-17); Calcium 8.9 mg/dL (8.4-10.2); Carbon Dioxide 31 mmol/L (22-30); Chloride 101 mmol/L (98-107); Estimated Glomerular Filt Rate 59; Glucose 93 mg/dL (65-110); Potassium 3.9 mmol/L (3.4-5.0); Sodium 135 mmol/L (137-145)
== END 2024-09-15 11:26 | disposition home or self-care (01) ==
LOC: ANHLAB 11:28
PROVIDERS: PCP Family Medicine; Visit Provider Family Medicine
DX: E03.9 Hypothyroidism, unspecified (principal); I10 Essential (primary) hypertension
CPT/HCPCS: 36415; 80053; 84443; 99212; G0463

== ENCOUNTER 2025-04-28 08:41 | Outpatient (CLI) | payer MEDICARE, SELFPAY ==
--- OUTSIDE RECORDS SUMMARY | 2025-04-28 08:45 | XMS_ITS | Data Portability ---
Author Organization [place] - [employer] Main Office Address [address] [place] [address] Care Team Providers Care Powderer Name Role Phone RHYS WIN Primary Care Provider RHYS WIN Referring Provider Assessment Encounter Date Assessment Date Assessment LastModified by Organization Details LastModified Time 06/04/2024 06/04/2024 89 year old female presents for re-evaluation of her right knee. Reported pain and swelling that was getting worse. At her last appointment we ordered PT, meloxicam, and did a cortisone injection. She did not attend PT, but she did take the meloxicam. Today she states the knee is much better. She said the injection kicked in 1 week after her appointment and she has not had pain since. Physical exam: Nonantalgic gait. No effusion. No pain with palpitation. Stable ligaments. Negative [facility]. Sensation intact to light touch She has knee osteoarthritis, we will continue with conservative management. She has taken all of the meloxicam but states she does not want more. We discussed she can get injections ever 3-4 months. She will call if her pain returns. [email or web address] Not available 06/04/2024 09:52:20 11/19/2024 11/19/2024 HPI: 89 year old female presents today with granddaughter for right knee pain secondary to osteoarthritis. We have been treating this conservatively with injections. Last injection was April 2024, she reports that it has lasted until 3-4 weeks ago. Currently rates her pain as 8/10. She does take ibuprofen or tylenol as needed for pain. Injections helped with her pain and improves her ambulation. She would like to proceed with another injections today. Physical Exam: General: Normal appearance. No acute distress. Inspection: 2+ effusion. No evidence of erythema, bruising or deformity. Palpation: Nontender to palpitation. ROM: 5-120 Gait: Shuffle Motor: 5/5 strength. Sensation: Sensation intact. Assessment & Plan: We will continue with conservative management Injection given today. NSAID as needed for pain. Ice and elevate to decrease swelling. Follow Up: As needed for pain. Can get injections every 3 months as needed. All questions were answered. Patient and granddaughter verbalized understanding of treatment plan [email or web address] Not available 11/19/2024 12:52:21 12/17/2024 12/17/2024 89-year-old female presents for follow-up of her right knee. She has patellofemoral arthritis. She previously had a cortisone injection 11/19/2024 which was her 2nd injection. Her previous 1 was back in April. The 1st 1 worked quite well for her and gave her several months relief. She reports the injection last month it did not work at all. She reports worsening pain, currently rates 10/10. Tender over medial joint line and patella, positive grind. Stable ligaments. Negative Neo. Sensation intact to light touch We discussed that it is too soon to try another repeat a cortisone injection, she can get this every 3-4 months. Given that she failed her last cortisone injection we will try to get authorization for gel injections. In the meantime she can continue taking anti-inflammatori es. We will see her back once we have approval and to perform the gel injection. Not available 12/18/2024 00:37:26 12/24/2024 12/24/2024 89-year-old female presents for follow-up of her right knee. She has a history of osteoarthritis. We previously discussed doing gel injections and she is here for her Synvisc-One injection today. She reports 10/10 pain, the knee still bothering her with walking daily activities. Tender over medial joint line and patella, positive grind. Stable ligaments. Negative [facility]. Sensation intact to light touch We performed the Synvisc 1 injection today. She tolerated that well. We will see her back in 2-3 months for recheck. We discussed that she can get gel injections every 6 months or so. She is in agreement with the plan. Not available 12/29/2024 10:04:54 02/04/2025 02/04/2025 89-year-old female presents for follow-up of her right knee. She has knee arthritis and we have been treating it conservatively. At her last visit at the beginning of December, approximately 6 weeks ago, she received a Synvisc 1 injection. She reports it is not helping actually made it worse. She currently reports 6/10 pain, having difficulty with walking, gardening, getting up and down stairs. She has tenderness over the anterior knee, range of motion 5-130 with crepitus with range of motion. We discussed treatments include continue conservative management with anti-inflammatori es and physical therapy, repeat cortisone injection, or surgery for knee arthroplasty. She feels like she is not ready for surgery at this point once continue conservative management. We will give her an order for Celebrex, since meloxicam caused stomach issues for her last time with diarrhea, and also course of PT for gait training and strengthening. We also discussed cortisone injection which she wanted to proceed with tolerated well. We will see her back in 3 months for recheck or sooner as needed. We will have the same discussion that point in terms of the treatment options. She is in agreement with the plan. Not available 02/04/2025 14:21:58 Plan of Treatment Reminders Order Date Submit Date Provider Last Modified By Organization Details Last Modified Time Details Appointments None recorded. Lab None recorded. Referral physical therapist referral - Please call pt to schedule apt for R knee. Please work on gait training. thanks 2024 025 [email or web address] [facility], [address] [facility] [address], [place], [address], 23:07:25 Procedures injection/a spiration joint/bursa (PROC) 2024 025 [email or web address] In-Office Order, Internal Use Only DO Not Attach Compendium DO Not Attach Compendium, Do Not Delete/merge, [id number] 12:00:54 knee aspiration/ injection (PROC) 2024 025 [email or web address] In-Office Order, Internal Use Only DO Not Attach Compendium DO Not Attach Compendium, Do Not Delete/merge, [id number] 17:09:19 injection/a spiration joint/bursa (PROC) 2024 [email or web address] In-Office Order, Internal Use Only DO Not Attach Compendium DO Not Attach Compendium, Do Not Delete/merge, [id number] 11:34:46 Surgeries None recorded. Imaging None recorded. Medication Orders bupivacaine HCl 0.5 % (5 mg/mL) injection solution 2024 [facility]ust [facility] #[id number], [address], [place], [id number], 5 23:07:25 Kenalog 10 mg/mL suspension for injection 2024 formerly [facility] #46034, [address], [place], [id number], 5 23:07:25 Celebrex 200 mg capsule 2024 025 [facility] #05339, [address], [place], [id number], 5 23:07:25 bupivacaine HCl 0.5 % (5 mg/mL) injection solution 2024 025 formerly [facility], [address], [place], [id number], 5 10:19:05 Kenalog 10 mg/mL suspension for injection 2024 025 [facility] #[id number], [address], [place], [id number], 5 10:19:05 Patient TargetsNo targets recorded. Patient Instructions Encounter Date Encounter Id Patient Instructions Last Modified By Organization Details Last Modified Time 12/17/2024 [id number] viscosupplementa tion treatment* - Synvisc one, Pt wants Dr. Fontaine to inject her knee [email or web address] Not available 12/17/2024 15:07:35 Reason for Referral Physical Therapist Referral for Osteoarthritis of right knee joint R knee Please call pt to schedule apt for R knee. Please work on gait training. thanks Referring Physician: Chris Fontaine, Orthopedic Surgery, Encounter Date: 02/04/2025 Problems Name Problem SNOMED Code Status Onset Date Resolution Date Notes Provider Name and Address Organization Details Recorded Time Pain of left knee joint 4702588834175 07 Active 2023 Lexii Grider RMA null, [facility] [employer] [facility] 4 09:43:49 Pain of right knee joint 4900237980219 00 Active 2023 Amanda Enriquez CORRESPONDENCE ANALYST null, [facility] [employer] [facility] 4 10:28:06 Effusion of joint of right knee 3467454568631 04 Active 2023 Paige Archuleta RMA null, [facility] [employer] [facility] 4 09:26:03 Bilateral osteoarthri tis of knees 3808726796380 07 Active 2024 Carmen Hendrix PA-C [address], [place], [address], [employer] [facility] [employer] [facility] 5 12:52:27 Osteoarthri tis of right knee joint 8322064730751 00 Active 2024 Little Topete ATC L null, [facility] [employer] [facility] 5 10:33:20 Osteoarthri tis of left knee joint 1444618824366 09 Active 2024 Little Topete ATC L null, [facility] [employer] [facility] 5 10:33:34 Problem Notes None recorded. Procedures Surgical History Date Name Laterality Status Provider Name and Address Organization Details Recorded Time 02/05/20 25 Ortho - Cortisone Injection completed Chris Fontaine MD [address], [address], [place], [address], [employer] [facility] [employer] [facility] 02/04/2025 14:22:25 12/25/19 25 Synvisc Injection completed Chris Fontaine MD [address], [address], [place], [address], [facility] 12/29/2024 10:05:15 11/19/19 25 Corticosteroid Injection completed Carmen Hendrix PA-C [address], [address], [place], [address], [facility] 11/19/2024 12:58:27 04/23/20 24 Ortho - Cortisone Injection completed Chris Fontaine MD [address], [address], [place], [address], [facility] 04/25/2024 15:19:00 procedure on shoulder completed Lexii Grider Donna [facility] 04/23/2024 09:42:17 Back completed Lexii Grider [facility] 04/23/2024 09:42:27 Imaging Results None recorded. Procedure Notes None recorded. Medical Equipment None Reported. Allergies No known drug allergies Medications Name Sig Start Date Stop Date Status Note LastModified by Organization Details LastModified Time celecoxib 200 mg capsule TAKE 1 CAPSULE BY MOUTH EVERY DAY active Not Available Not Available No t Available amoxicillin 500 mg capsule 04/15 completed Not Available Not Available Not Available fluconazole 150 mg tablet 04/15 completed Not Available Not Available Not Available meloxicam 15 mg tablet TAKE 1 TABLET BY MOUTH EVERY DAY active Not Available Not Available No t Available lisinopril 20 mg tablet 04/15 completed Not Available Not Available Not Available bupivacaine HCl 0.5 % (5 mg/mL) injection solution Take 4 mL by injection route. 2024 active Not Available Not Available Not Avai lable tramadol 50 mg tablet 04/15 completed Not Available Not Available Not Available levothyroxi ne 75 mcg tablet TAKE 1 TABLET BY MOUTH DAILY active Not Available Not Available No t Available meloxicam 7.5 mg tablet TAKE 1 TABLET BY MOUTH EVERY DAY active Not Available Not Available No t Available Kenalog 10 mg/mL suspension for injection Take 1 mL by injection route. 2024 active [facility]: 0003- 0494- 20 Not Available Not Available Not Available raloxifene 60 mg tablet TAKE 1 TABLET BY MOUTH DAILY active Not Available Not Available No t Available hydrochloro thiazide 25 mg tablet TAKE 1/2 TABLET BY MOUTH EVERY MORNING active Not Available Not Available No t Available methylpredn isolone 4 mg tablets in a dose pack 04/15 completed Not Available Not Available Not Available lisinopril 40 mg tablet TAKE 1 TABLET BY MOUTH DAILY active Not Available Not Available No t Available Marcaine (PF) 0.5 % (5 mg/mL) injection solution Take 4 mL by injection route. 2023 active Not Available Not Available Not Avai lable Synvisc-One 48 mg/6 mL intra-artic ular syringe Take 6 mL by intraarti cular route as directed, for right knee osteoarth ritis. active Not Available Not Available No t Available Fluzone High-Dose 5084-0953 (PF) 180 mcg/0.5 mL intramuscul ar syringe 04/15 completed Not Available Not Available Not Available Vitals Date Recorded Body height Body mass index (BMI) Body weight Provider Name and Address Organization Details Last Updated DateTime 11/19/2024 162.56 cm 22.3 kg/m2 08623.01 cecy Archuleta Donna [employer] 11/19/2024 11:12:50 Date Recorded Body height Provider Name an d Address Organization Details Last Updated DateTime 12/17/2024 162.56 cm Paige Archuleta Donna [employer] 12/17/2024 10:04:48 Date Recorded Body height Body mass index (BMI) Body weight Provider Name and Address Organization Details Last Updated DateTime 12/24/2024 162.56 cm 22.3 kg/m2 79022.01 cecy Archuleta [facility] [employer] 12/24/2024 15:07:49 Date Recorded Body height Body mass index (BMI) Body weight Provider Name and Address Organization Details Last Updated DateTime 02/04/2025 162.56 cm 22.3 kg/m2 94911.01 cecy Archuleta [employer] 02/04/2025 11:46:21 Date Recorded Body height Body mass index (BMI) Body weight Provider Name and Address Organization Details Last Updated DateTime 06/04/2024 162.56 cm 22.3 kg/m2 47316.01 g [place] [facility] 06/04/2024 09:25:39 Social History None recorded. Functional Status Question Answer Note LastModified by Organization D etails LastModified Time What is your level of alcohol consumption? None [email or web address] Information not available 04/23/2024 Mental Status None recorded. Family History Relationship Description Onset Age of this Age Resolved Age Notes LastModified by Organization Details LastModified Time Mother Hypertensive disorder [email or web address] Not available 2023 09:38:59 Notes:cancer-mom Medical History Condition Response ARTHRITIS Y HYPERTENSION Y Gynecological HistoryNo gynecological history recorded. Obstetrics History GPAL:G 0 P 0 0 0 0 Past Encounters Encounter ID Performer Location Encounter Start Date Encounter Closed Date Diagnosis/Indication Diagnosis SNOMED-CT Code Diagnosis ICD10 Code Diagnosis Note [id number] Chris Fontaine MD [facility] [address] [place] [address] 04/23/2024 09:11:22 04/23/2024 10:31:40 Pain of right knee joint 9737373499 17131 M25.906 [id number] Chris Fontaine MD [facility] [address] [place] [address] 06/04/2024 09:22:46 06/04/2024 10:24:36 Pain of right knee joint 9975549255 36697 M25.561 Effusion o f joint of right knee 1845769654 86930 M25.062 [id number] Chris Fontaine MD [facility] [address] [place] [address] 11/19/2024 11:11:11 11/19/2024 11:48:53 Effusion of joint of right knee 3521428023 54514 M25.461 Pain of ri ght knee joint 9466491626 19453 M25.561 Bilateral osteoarthritis of knees 1314053639 42866 M17.0 [id number] Chris Fontaine MD [facility] [address] [place] [address] 12/17/2024 10:03:02 12/17/2024 11:12:53 Pain of right knee joint 7036488998 57717 M25.561 Osteoarthr itis of right knee joint 3440224133 95041 M17.11 Osteoarthr itis of left knee joint 0995000502 74512 M17.12 [id number] Chris Fontaine MD [facility] [address] [place] [address] 12/24/2024 15:06:10 12/24/2024 15:29:08 Osteoarthritis of right knee joint 0359796798 62601 M17.11 [id number] Chris Fontaine MD [facility] [address] [place] [address] 02/04/2025 11:39:16 02/04/2025 12:10:12 Bilateral osteoarthritis of knees 4501859176 08305 M17.0 Osteoarthr itis of left knee joint 1150789936 76668 M17.12 Osteoarthr itis of right knee joint 0345206329 68975 M17.11 Health Concerns Section Related Observation LastModified by Organization Detai ls LastModified Time None Recorded Concern Status LastModified by Organization Details LastModified Time None Recorded Advance Directives Directive None Recorded Payers Insurance Date Sequence Insurance Name Policy Number Policy Padron Covered Member ID Padron Member ID Guarantor Name 02/04/2025 1 [facility] - MEDICARE COMPLETE CHOICE (MEDICARE REPLACEMENT PPO) [id number] Martha Perry [id number] Martha Perry OBGyn Episode No OBEpisode recorded.
[2025-04-28 09:36] LABS: Hematocrit 42.4 % (37.0-47.0); Hemoglobin 13.3 g/dL (12.0-15.0); Mean Corpuscular HGB Conc 31.4 g/dl (32-36); Mean Corpuscular Hemoglobin 30.6 pg (26-34); Mean Corpuscular Volume 97.7 fl (80-100); Platelet Count Result 212 k/mm3 (150-375); Red Blood Count 4.34 M/mm3 (4.2-5.4); White Blood Count 6.5 K/mm3 (4.5-10.0)
[2025-04-28 09:44] LABS: Add Urine Microscopic? YES; Appearance Urine Cloudy (Clear); Glucose Urine UA Negative (Negative); Leukocyte Esterase Ur 3+ LEU/UL (Negative); Nitrate Urine Positive (Negative); Non Pathogenic Casts 0-2; Specific Grav Ur 1.010 (1.001-1.035)
[2025-04-28 09:51] LABS: Alanine Aminotransferase 14 U/L (6-35); Albumin Level 3.9 g/dL (3.5-5.1); Alkaline Phosphatase 63 U/L (38-126); Anion Gap 8 mmol/L (4-12); Aspartate Amino Transferase 29 U/L (14-36); Bilirubin,Total 0.7 mg/dL (0.2-1.3); Blood Urea Nitrogen 16 mg/dL (7-17); Calcium 9.1 mg/dL (8.4-10.2); Carbon Dioxide 25 mmol/L (22-30); Chloride 105 mmol/L (98-107); Cholesterol 240 mg/dL (0-200); Estimated Glomerular Filt Rate > 60; Glucose 89 mg/dL (65-110); HDL Direct 71 mg/dL; Potassium 4.1 mmol/L (3.4-5.0); Sodium 138 mmol/L (137-145); Total Protein 7.1 g/dL (6.3-8.2); Triglycerides 146 mg/dL (<150)
[2025-04-28 10:21] LABS: Thyroid Stimulating Hormone 3.110 uIU/mL (0.465-4.680)
== END 2025-04-28 08:42 | disposition home or self-care (01) ==
PROVIDERS: PCP Family Medicine; Visit Provider Family Medicine
DX: E78.5 Hyperlipidemia, unspecified (principal); I10 Essential (primary) hypertension; E03.9 Hypothyroidism, unspecified; R53.83 Other fatigue
CPT/HCPCS: 36415; 80053; 80061; 81001; 84443; 85027; 99212; G0463

== ENCOUNTER 2025-09-11 15:43 | Outpatient (CLI) | payer MEDICARE, SELFPAY ==
--- OUTSIDE RECORDS SUMMARY | 2025-09-11 15:45 | XMS_ITS | Data Portability ---
Author Organization [place] [facility] [employer], Main Office Address [address] [place] [address] Care Team Providers Care Dimmer Board Operator Name Role Phone RHYS WIN Primary Care Provider RHYS WIN Referring Provider [phone] Assessment Encounter Date Assessment Date Assessment LastModified [...] No pain with palpitation. Stable ligaments. Negative Neo. Sensation intact to light touch She has [...] and patella, positive grind. Stable ligaments. Negative [facility]. Sensation intact to light touch We discussed [...] Neo. Sensation intact to light touch We performed [...] on gait training. thanks 2024 025 [email or web address] [facility], [address] [facility], [facility] [address], [place], [address], 23:07:25 Procedures injection/a spiration joint/bursa (PROC) 2024 025 [email or web address] In-Office Order, Internal Use Only DO Not Attach Compendium DO Not Attach Compendium, Do Not Delete/merge, [id number] 12:00:54 knee aspiration/ injection (PROC) 2024 025 [email or web address] In-Office Order, Internal Use Only DO Not Attach Compendium DO Not Attach Compendium, Do Not Delete/merge, [id number] 5 17:09:19 injection/a spiration joint/bursa (PROC) 2024 [email or web address] In-Office Order, Internal Use Only DO Not Attach Compendium DO Not Attach Compendium, Do Not Delete/merge, [id number] 5 11:34:46 Surgeries None recorded. Imaging None recorded. Medication Orders bupivacaine HCl 0.5 % (5 mg/mL) injection solution 2024 [facility][id number], [address], [place], [id number], 5 23:07:25 Kenalog 10 mg/mL suspension for injection 2024 [facility] #[id number], [address], [place], [id number], 5 23:07:25 Celebrex 200 mg capsule 2024 025 [facility] #49167, [address], [place], [id number], 5 23:07:25 bupivacaine HCl 0.5 % (5 mg/mL) injection solution 2024 025 [facility], [address], [place], [id number], 5 10:19:05 Kenalog 10 mg/mL suspension for injection 2024 025 [facility] #79187, [address], [place], [id number], 5 10:19:05 Patient TargetsNo targets recorded. Patient Instructions Encounter Date Encounter Id Patient Instructions Last Modified By Organization Details Last Modified Time 12/17/2024 [id number] viscosupplementa tion treatment* - Synvisc one, Pt [...] Recorded Time Pain of left knee joint 1051718837209 07 Active 2023 Lexii Grider RMA null, [facility] [employer] [facility] 4 09:43:49 Pain of right knee joint 9689676688205 00 Active 2023 Amanda Enriquez STUNNER ANIMAL null, [facility] [employer] [facility] 4 10:28:06 Effusion of joint of right knee 3841385761082 04 Active 2023 Paige Archuleta RMA null, [facility] [employer] [facility] 4 09:26:03 Bilateral osteoarthri tis of knees 0312508746922 07 Active 2024 Carmen Hendrix PA-C [address], [place], [address], [facility] [employer] [facility] 5 12:52:27 Osteoarthri tis of right knee joint 5288846793822 00 Active 2024 Little Topete ATC L null, [facility] [employer] [facility] 5 10:33:20 Osteoarthri tis of left knee joint 0262269163358 09 Active 2024 Little Topete ATC L null, [facility] [employer] [facility] 5 10:33:34 Problem Notes None recorded. Procedures Surgical History Date Name Laterality Status Provider Name and Address Organization Details Recorded Time 02/05/20 25 Ortho - Cortisone Injection completed Chris Fontaine MD [address], [place], [address], [facility] [employer] [facility] 02/04/2025 14:22:25 12/25/19 25 Synvisc Injection completed Chris Fontaine MD [address], [address], [place], [address], [facility] 12/29/2024 10:05:15 11/19/19 25 Corticosteroid Injection completed Carmen Hendrix PA-C [address], [address], [place], [address], [facility] 11/19/2024 12:58:27 04/23/20 24 Ortho - Cortisone Injection completed Chris Fontaine MD [address], [address], [place], [address], [facility] 04/25/2024 15:19:00 procedure on shoulder completed Lexii Grider Donna [facility] 04/23/2024 09:42:17 Back completed Lexii Grider [facility] 04/23/2024 09:42:27 Imaging Results None recorded. Procedure [...] 1 mL by injection route. 2024 active [facility]: [id number] [phone] Not Available Not Available [...] Not Available No t Available Fluzone High-Dose [id number] (PF) 180 mcg/0.5 mL intramuscul ar syringe 04/15 completed Not Available Not Available Not Available Vitals Date Recorded Body height Body mass index (BMI) Body weight Pain severity - 0-10 verbal numeric rating [Score] - Reported Provider Name and Address Organization Details Last Updated DateTime 11/19/2024 162.56 cm 22.3 kg/m2 67976.01 g 8 Paige Archuleta Donna [facility] [employer] 11/19/2024 11:12:52 Date Recorded Body height Provider Name an d Address Organization Details Last Updated DateTime 12/17/2024 162.56 cm Paige Archuleta Donna [facility] [employer] 12/17/2024 10:04:48 Date Recorded Body height Body mass index (BMI) Body weight Pain severity - 0-10 verbal numeric rating [Score] - Reported Provider Name and Address Organization Details Last Updated DateTime 12/24/2024 162.56 cm 22.3 kg/m2 94155.01 g 10 Paige Archuleta Donna [facility] [employer] 12/24/2024 15:07:54 Date Recorded Body height Body mass index (BMI) Body weight Pain severity - 0-10 verbal numeric rating [Score] - Reported Provider Name and Address Organization Details Last Updated DateTime 02/04/2025 162.56 cm 22.3 kg/m2 39596.01 g 6 Paige Archuleta Donna [facility] [employer] 02/04/2025 11:46:45 Date Recorded Body height Body mass index (BMI) Body weight Provider Name and Address Organization Details Last Updated DateTime 06/04/2024 162.56 cm 22.3 kg/m2 44602.01 g MONICO Cottrell [employer] [facility] 06/04/2024 09:25:39 Social History None recorded. Functional Status Question Answer Note LastModified by Organization D etails LastModified Time What is your level of alcohol consumption? None Information not available 04/23/2024 Mental Status None recorded. Family History Relationship Description Onset Age of this Age Resolved Age Notes LastModified by Organization Details LastModified Time Mother Hypertensive disorder [email or web address] Not available 2023 09:38:59 Notes:cancer-mom Medical History Condition Response ARTHRITIS Y HYPERTENSION Y Gynecological HistoryNo gynecological history recorded. Obstetrics History GPAL:G 0 P 0 0 0 0 Past Encounters Encounter ID Performer Location Encounter Start Date Encounter Closed Date Diagnosis/Indication Diagnosis SNOMED-CT Code Diagnosis ICD10 Code Diagnosis IMO Codes Diagnosis Note [id number] Chris Fontaine MD [facility] [place] [address] [place] [address] 04/23/2024 09:11:22 04/23/2024 10:31:40 Pain of right knee joint 3309922684 30762 M25.911 [id number] Chris Fontaine MD [facility] [place] [address] [place] [address] 06/04/2024 09:22:46 06/04/2024 10:24:36 Pain of right knee joint 0219942102 62265 M25.561 Effusion o f joint of right knee 4155937061 82244 M25.675 [id number] Chris Fontaine MD [facility] [place] [address] [place] [address] 11/19/2024 11:11:11 11/19/2024 11:48:53 Effusion of joint of right knee 8116021715 23081 M25.461 Pain of ri ght knee joint 4419845840 08190 M25.561 Bilateral osteoarthritis of knees 2994098589 05480 M17.0 [id number] Chris Fontaine MD [facility] [place] [address] [place] [address] 12/17/2024 10:03:02 12/17/2024 11:12:53 Pain of right knee joint 4569983787 71636 M25.561 Osteoarthr itis of right knee joint 9146199728 49377 M17.11 Osteoarthr itis of left knee joint 8283245886 69980 M17.12 [id number] Chris Fontaine MD [facility] [place] [address] [place] [address] 12/24/2024 15:06:10 12/24/2024 15:29:08 Osteoarthritis of right knee joint 7339533821 19668 M17.11 [id number] Chris Fontaine MD [facility] [place] [address] [place] [address] 02/04/2025 11:39:16 02/04/2025 12:10:12 Bilateral osteoarthritis of knees 1437868372 34024 M17.0 Osteoarthr itis of left knee joint 6820844899 98599 M17.12 Osteoarthr itis of right knee joint 3675353232 22354 M17.11 Health Concerns Section Related Observation LastModified by Organization Detai ls LastModified Time None Recorded Concern Status LastModified by Organization Details LastModified Time None Recorded Advance Directives Directive None Recorded Payers Insurance Date Sequence Insurance Name Policy Number Policy Padron Covered Member ID Padron Member ID Guarantor Name 05/21/2025 1 [facility] - MEDICARE COMPLETE CHOICE (MEDICARE REPLACEMENT PPO) [id number] Martha Perry [id number] Martha Perry OBGyn Episode No OBEpisode recorded.
[2025-09-11 16:20] LABS: Add Urine Microscopic? YES; Appearance Urine Clear (Clear); Glucose Urine UA Negative (Negative); Leukocyte Esterase Ur 3+ LEU/UL (Negative); Nitrate Urine Negative (Negative); Non Pathogenic Casts 0-2; Specific Grav Ur 1.009 (1.001-1.035)
== END 2025-09-11 15:44 | disposition home or self-care (01) ==
PROVIDERS: PCP Family Medicine; Visit Provider Student in an Organized Health Care Education/Training Program
DX: R30.0 Dysuria (principal)
CPT/HCPCS: 81001; 87086

== ENCOUNTER 2025-10-06 16:20 | Outpatient (CLI) | payer MEDICARE, SELFPAY ==
[2025-10-06 17:06] LABS: Influenza A QL RT-PCR Negative (Negative); Influenza B QL RT-PCR Negative (Negative); RSV RNA, RT-PCR Positive (Negative); SARS-CoV-2 RNA PCR Negative (Negative)
== END 2025-10-06 16:21 | disposition home or self-care (01) ==
PROVIDERS: PCP Family Medicine; Visit Provider Physician Assistant
DX: J02.9 Acute pharyngitis, unspecified (principal); Z20.822 Contact with and (suspected) exposure to COVID-19
CPT/HCPCS: 87637